=== PATIENT | female | born 1940 | race Caucasian/White ===

== ENCOUNTER → 2016-06-10 | Outpatient (CLI) | payer MEDICARE, MEDICAID ==
[~2016-06-10] MED LIST: ASPI-407 PO; LEVO100C; LIS5T GT; MELO-85; MELO-85 PO; MET50T GT; METO-169; OME20GT; OMEP20CA5 OR; SIMV-8 PO; SIMV20TA90
[2016-06-10 12:16] LABS: Basophils # (auto) 0 uL; Basophils % (auto) 0.7 % (0.0-2.0); Eosinophils # (auto) 0.2 uL; Hematocrit 42.7 % (36.0-46.0); Hemoglobin 13.6 g/dL (12.2-16.2); Lymphocytes % (auto) 33.9 % (10.0-50.0); Mean Corpuscular Hemoglobin 29.2 pg (28.0-32.0); Mean Corpuscular Hgb Conc. 31.8 g/dL (32.0-36.0); Mean Corpuscular Volume 91.8 fL (80.0-100.0); Mean Platelet Volume 8.5 fL (7.4-10.4); Monocytes # (auto) 0.5 uL; Monocytes % (auto) 8.2 % (0.0-12.0); Neutrophils # (auto) 3.1 uL; Neutrophils % (auto) 53.2 % (37.0-80.0); Platelet Count (auto) 285 10^3/uL (140-450); Red Cell Distribution Width 12.9 % (11.6-16.0); White Blood Cell 5.8 10^3/uL (4.4-10.8)
[2016-06-10 12:19] LABS: Urine Bilirubin Negative (Negative); Urine Blood Negative /uL (Negative); Urine Color Yellow (Yellow); Urine Glucose Normal (Normal); Urine Ketone Negative (Negative); Urine Nitrite Negative (Negative); Urine Urobilinogen Normal (Negative)
[2016-06-10 13:08] LABS: Albumin 4.1 g/dL (3.4-5.0); BUN/Creatinine Ratio 27.3; Bilirubin, Direct 0.2 mg/dL (0-0.2); Bilirubin, Total 1.1 mg/dL (0.2-1.0); Calcium 9.1 mg/dL (8.5-10.1); Potassium 4.2 mmol/L (3.5-5.1); Total Protein 7.7 g/dL (6.4-8.2)
== END | disposition home or self-care (01) ==
LOC: Rad HDHVI 08:36
PROVIDERS: ATTEND Internal Medicine Cardiovascular Disease
DX: I10 Essential (primary) hypertension (principal); E78.00 Pure hypercholesterolemia, unspecified; K74.1 Hepatic sclerosis; E11.9 Type 2 diabetes mellitus without complications; E03.9 Hypothyroidism, unspecified; D64.9 Anemia, unspecified; E55.9 Vitamin D deficiency, unspecified; N39.0 Urinary tract infection, site not specified
CPT/HCPCS: 36415; 80048; 80061; 80076; 81003; 82306; 83036; 84443; 85025

== ENCOUNTER → 2016-11-25 | Outpatient (CLI) | payer MEDICARE, MEDICAID ==
[~2016-11-25] MED LIST changes: -OMEP20CA5 OR; +OMEP20CA74 OR
== END | disposition home or self-care (01) ==
LOC: Rad HDHVI 10:36
PROVIDERS: ATTEND Internal Medicine Cardiovascular Disease
DX: M79.89 Other specified soft tissue disorders (principal); R22.9 Localized swelling, mass and lump, unspecified; R53.1 Weakness
CPT/HCPCS: 93926; 93970

== ENCOUNTER → 2017-01-23 | Outpatient (CLI) | payer MEDICARE, MEDICAID ==
[~2017-01-23] MED LIST changes: +IOHEXOL 350 MG/ML 100ML IJ ONE
[2017-01-23 10:10] VITALS: BP 182/90
[2017-01-23 10:45] VITALS: BP 195/95
== END | disposition home or self-care (01) ==
LOC: Rad HDHVI 09:59
PROVIDERS: ATTEND Internal Medicine Cardiovascular Disease
DX: K55.1 Chronic vascular disorders of intestine (principal); D71 Functional disorders of polymorphonuclear neutrophils; N28.1 Cyst of kidney, acquired; I51.7 Cardiomegaly; K76.89 Other specified diseases of liver
CPT/HCPCS: 74177; 82565; G0463; Q9967; 96374

== ENCOUNTER → 2017-03-13 | Outpatient (CLI) | payer MEDICARE, MEDICAID ==
[~2017-03-13] MED LIST changes: -IOHEXOL 350 MG/ML 100ML IJ ONE; -MELO-85; -MELO-85 PO; +MELO1TAB73; +MELO1TAB73 PO
[2017-03-13 14:14] LABS: BUN/Creatinine Ratio 25.4; Calcium 9.4 mg/dL (8.5-10.1); Uric Acid 5.5 mg/dL (2.6-6.0)
== END | disposition home or self-care (01) ==
LOC: Rad HDHVI 11:56
PROVIDERS: ATTEND Internal Medicine Cardiovascular Disease
DX: M25.461 Effusion, right knee (principal); M25.761 Osteophyte, right knee; I10 Essential (primary) hypertension; M10.9 Gout, unspecified
CPT/HCPCS: 36415; 73562; 80048; 84550

== ENCOUNTER → 2017-03-30 | Outpatient (CLI) | payer MEDICARE, MEDICAID | END | disposition home or self-care (01) | LOC: Rad HDHVI 11:40 | PROVIDERS: ATTEND Internal Medicine Cardiovascular Disease | DX: M17.11 Unilateral primary osteoarthritis, right knee (principal); M11.261 Other chondrocalcinosis, right knee; M67.863 Other specified disorders of tendon, right knee; M25.461 Effusion, right knee; M85.9 Disorder of bone density and structure, unspecified | CPT/HCPCS: 73700; 77078 ==

== ENCOUNTER → 2017-08-12 | Outpatient (CLI) | payer MEDICARE, MEDICAID ==
[~2017-08-12] VITALS: Ht 162.6 cm; Wt 86.2 kg
[~2017-08-12] MED LIST changes: +ADENOSINE 72 MG in GIVE UN-DILUTED 0 ML IV ONE; +ADENOSINE 90 MG/30 ML INJ IV ONE
[2017-08-12 12:10] LABS: Basophils # (auto) 0 uL; Basophils % (auto) 0.8 % (0.0-2.0); Eosinophils # (auto) 0.1 uL; Eosinophils % (auto) 2.4 % (0.0-7.0); Hematocrit 42.7 % (36.0-46.0); Hemoglobin 14.1 g/dL (12.2-16.2); Lymphocytes # (auto) 2.1 uL; Lymphocytes % (auto) 43.1 % (10.0-50.0); Mean Corpuscular Hemoglobin 30.4 pg (28.0-32.0); Mean Corpuscular Hgb Conc. 32.9 g/dL (32.0-36.0); Mean Corpuscular Volume 92.4 fL (80.0-100.0); Monocytes # (auto) 0.3 uL; Monocytes % (auto) 6.7 % (0.0-12.0); Neutrophils # (auto) 2.2 uL; Nucleated Red Blood Cells % 1.4 %; Platelet Count (auto) 68 10^3/uL (140-450); Red Blood Cells 4.63 10^6/uL (4.0-5.20); Red Cell Distribution Width 13.5 % (11.8-14.3); White Blood Cell 4.8 10^3/uL (4.4-10.8)
[2017-08-12 12:21] LABS: Free T4 (Free Thyroxine) 1.21 ng/dL (0.89-1.76)
[2017-08-12 12:42] LABS: Albumin 3.9 g/dL (3.4-5.0); BUN/Creatinine Ratio 19.4; Bilirubin, Total 0.8 mg/dL (0.2-1.0); Calcium 9.2 mg/dL (8.5-10.1); Potassium 3.6 mmol/L (3.5-5.1); Total Protein 7.6 g/dL (6.4-8.2)
== END | disposition home or self-care (01) ==
LOC: Rad HDHVI 08:38
PROVIDERS: ATTEND Internal Medicine Cardiovascular Disease
DX: I11.0 Hypertensive heart disease with heart failure (principal); I50.33 Acute on chronic diastolic (congestive) heart failure; R00.2 Palpitations; M76.51 Patellar tendinitis, right knee; M76.52 Patellar tendinitis, left knee; E78.5 Hyperlipidemia, unspecified; D64.9 Anemia, unspecified; E11.9 Type 2 diabetes mellitus without complications; E03.9 Hypothyroidism, unspecified; E55.9 Vitamin D deficiency, unspecified; D51.9 Vitamin B12 deficiency anemia, unspecified; N39.0 Urinary tract infection, site not specified
CPT/HCPCS: 36415; 78452; 80053; 80061; 82306; 82607; 83036; 84439; 84443; 85025; 93005; 96374; 96375; A9500; J0153

== ENCOUNTER 2018-04-15 16:06 | Emergency (ER) | payer MEDICARE, MEDICAID ==
[~2018-04-15 16:06] MED LIST changes: -ADENOSINE 72 MG in GIVE UN-DILUTED 0 ML IV ONE; -ADENOSINE 90 MG/30 ML INJ IV ONE; +IBUP100S11 PO
[2018-04-15 16:12] VITALS: BP 193/90
== END 2018-04-15 17:50 | disposition home or self-care (01) ==
LOC: ER 16:09
DX: M17.0 Bilateral primary osteoarthritis of knee (principal); M11.262 Other chondrocalcinosis, left knee; M11.261 Other chondrocalcinosis, right knee; K21.9 Gastro-esophageal reflux disease without esophagitis; E78.5 Hyperlipidemia, unspecified; E07.9 Disorder of thyroid, unspecified; E11.9 Type 2 diabetes mellitus without complications; I10 Essential (primary) hypertension; Z95.0 Presence of cardiac pacemaker; Z79.82 Long term (current) use of aspirin; Z79.899 Other long term (current) drug therapy
CPT/HCPCS: 73562

== ENCOUNTER 2018-05-14 13:31 | Inpatient (IN) | payer MEDICARE, MEDICAID ==
[~2018-05-14] VITALS: Ht 154.9 cm; Wt 93.2 kg
[2018-05-14 14:46] LABS: Albumin 3.7 g/dL (3.4-5.0); Anion Gap 3 (5-15); Blood Urea Nitrogen 16 mg/dL (7-18); Calcium 8.6 mg/dL (8.5-10.1); Carbon Dioxide 28 mmol/L (21-32); Chloride 108 mmol/L (98-107); Glucose 136 mg/dL (74-106); Sodium 139 mmol/L (136-145)
[2018-05-14 14:50] LABS: Alanine Aminotransferase 34 U/L (13-56); Alkaline Phosphatase 73 U/L (45-117); Aspartate Aminotransferase 33 U/L (15-37); BUN/Creatinine Ratio 23.5; Bilirubin, Total 0.9 mg/dL (0.2-1.0); GFR African American > 60 mL/min; GFR Non-African American > 60 mL/min; Total Protein 7.1 g/dL (6.4-8.2)
[2018-05-14 14:58] LABS: INR 0.96 (0.9-1.15); Partial Thromboplastin Time 26.1 sec (23.78-33.04); Prothrombin Time 10.3 sec (9.27-12.13)
[2018-05-14 15:45] LABS: Hematocrit 37.6 % (36.0-46.0); Hemoglobin 13.3 g/dL (12.2-16.2); Mean Corpuscular Hemoglobin 32.3 pg (28.0-32.0); Mean Corpuscular Hgb Conc. 35.3 g/dL (32.0-36.0); Mean Corpuscular Volume 91.5 fL (80.0-100.0); Platelet Count (auto) 258 10^3/uL (140-450); Red Cell Distribution Width 13.1 % (11.8-14.3); White Blood Cell 6.5 10^3/uL (4.4-10.8)
[2018-05-14 15:55] LABS: Band Neutrophils % (manual) 0; Basophils % (manual) 0 (0.0-2.0); Blast Cells 0; Metamyelocytes % 0; Myelocytes % 0; Promyelocytes % 0; Reactive Lymphocytes 0
[2018-05-14] MEDS ORDERED: NITROGLYCERIN 0.4 MG SL TAB SL PRN (16:30)
[2018-05-14] MEDS ORDERED: MORPHINE SULFATE 10 MG/ML INJ 1ML SDV IV PRN (16:30)
[2018-05-14] MEDS: ONDANSETRON HCL 4 MG/2 ML VIAL IV PRN (17:10)
[2018-05-14] MEDS: MORPHINE SULFATE 10 MG/ML INJ 1ML SDV IV PRN ×3 (17:11→21:22)
[2018-05-14 18:43] LABS: Lymphocytes % (manual) 26 (10.0-50.0)
[2018-05-14 18:44] LABS: Eosinophils % (manual) 2 (0-7); Monocytes % (manual) 8 (0-12)
[2018-05-14] MEDS: HYDROcodone-ACET 7.5/325MG TAB PO PRN (18:55)
[2018-05-14 20:00] VITALS: BP 110/63
[2018-05-14] MEDS ORDERED: MELO1TAB56 PO (20:16)
[2018-05-14] MEDS ORDERED: OLME20TA19 PO (20:16)
[2018-05-14] MEDS ORDERED: OMEP20TA PO (20:16)
[2018-05-14] MEDS ORDERED: LEV100T PO (20:16)
[2018-05-14] MEDS ORDERED: ATOR20TA PO (20:16)
[2018-05-14] MEDS ORDERED: MET5XLT PO (20:16)
[2018-05-14] MEDS: ATORVASTATIN 20 MG TAB PO SCH (21:20)
[2018-05-14] MEDS: METOPROLOL TARTRATE 50 MG TAB PO SCH (21:21)
[2018-05-14 22:00] VITALS: BP 110/63
--- NOTE | 2018-05-14 23:00 | NUR ---
Telemetry admit from MATTHEW ARAMBULA, [place] speaking, admitted to Telemetry unit after SBAR received. Patient oriented to IRINA SON, primary RN, unit, room, bed, and unit policies regarding patient care and visiting hours. Patient now on continuous telemetry monitoring, tele box # 2. Patient weighed by bedscale and encouraged to call if they need something. All questions and concerns addressed, patient verbalized understanding with help from patient's daughters.
--- NOTE | 2018-05-15 | NUR ---
STARTING NPO FOR SCHEDULED PROCEDURE
[2018-05-15] MEDS: MORPHINE SULFATE 10 MG/ML INJ 1ML SDV IV PRN ×3 (00:12→21:17)
[2018-05-15 04:58] VITALS: BP 106/52
[2018-05-15 05:42] LABS: Basophils # (auto) 0 uL; Basophils % (auto) 0.4 % (0.0-2.0); Eosinophils # (auto) 0.1 uL; Eosinophils % (auto) 1.3 % (0.0-7.0); Hematocrit 33.8 % (36.0-46.0); Hemoglobin 11.7 g/dL (12.2-16.2); Mean Corpuscular Hgb Conc. 34.7 g/dL (32.0-36.0); Mean Corpuscular Volume 92.1 fL (80.0-100.0); Monocytes # (auto) 0.9 uL; Monocytes % (auto) 11.1 % (0.0-12.0); Neutrophils # (auto) 4.7 uL; Neutrophils % (auto) 61.2 % (37.0-80.0); Platelet Count (auto) 201 10^3/uL (140-450); Red Blood Cells 3.67 10^6/uL (4.0-5.20); Red Cell Distribution Width 12.6 % (11.8-14.3); White Blood Cell 7.7 10^3/uL (4.4-10.8)
[2018-05-15 05:58] LABS: INR 0.98 (0.9-1.15); Partial Thromboplastin Time 25.6 sec (23.78-33.04); Prothrombin Time 10.5 sec (9.27-12.13)
[2018-05-15 06:01] LABS: Albumin 3.4 g/dL (3.4-5.0); Calcium 8.1 mg/dL (8.5-10.1); Potassium 3.6 mmol/L (3.5-5.1)
[2018-05-15 06:06] LABS: BUN/Creatinine Ratio 15.2; Bilirubin, Total 1.1 mg/dL (0.2-1.0); Total Protein 6.3 g/dL (6.4-8.2)
--- NOTE | 2018-05-15 06:40 | NUR ---
Cleaned patient with johann and done full linen change.
--- NOTE | 2018-05-15 07:50 | NUR ---
Opening Shift Note Assumed care of patient, awake and alert, oriented x 4 and verbally responsive. Respiratory even and unlabored. No S/S of distress/SOB or pain. Skin is warm and dry to touch. Continue NPO for ORIF to the right tibia, patient tolerated well. Instructed on POC and to call for assist PRN, will continue to monitor for changes Q1hr and PRN.
[2018-05-15 08:00] VITALS: BP 93/53
[2018-05-15 08:09] LABS: Urine Bacteria MANY /hpf (None Seen); Urine Blood 2+ /uL (Negative); Urine Hyaline Cast MANY /lpf (0 - 2); Urine Mucus MANY (None Seen); Urine Specific Gravity 1.025 (1.001-1.035); Urine WBC 139 /hpf (0 - 5)
[2018-05-15 08:39] VITALS: BP 93/53
[2018-05-15] MEDS: METOPROLOL TARTRATE 50 MG TAB PO SCH ×2 (09:07→21:16)
[2018-05-15] MEDS: PANTOPRAZOLE 40 MG/10 ML VIAL IV SCH (09:13)
--- NOTE | 2018-05-15 10:21 | NUR ---
Called [facility] regarding OR scheduling, patient will have ORIF around 1 PM. patient notified.
[2018-05-15] MEDS: cefTRIAXone 1GM/50ML D5W 50 ML IV SCH (12:12)
[2018-05-15] MEDS: SODIUM CHLORIDE 0.9% 1,000 ML IV SCH ×2 (12:12→21:15)
[2018-05-15 12:35] VITALS: BP 109/59
--- NOTE | 2018-05-15 13:30 | NUR ---
Dr. Love at bedside, procedure explained to the patient and family, all questions answered.
--- NOTE | 2018-05-15 14:15 | NUR ---
IV insertion IV access obtained, via clean sterile technique by inserting 20 gauge catheter at after attempt(s). IV secured properly. No trauma to site. Patient tolerated well. NOTE:
[2018-05-15] MEDS ORDERED: ceFAZolin 1GM/50ML 100 ML IV ONE ×2 (14:45→16:04)
--- NOTE | 2018-05-15 14:49 | NUR ---
T 99.8 cooling measure placed. Will continue to monitor.
--- NOTE | 2018-05-15 15:00 | NUR ---
T 98.2
--- NOTE | 2018-05-15 15:30 | NUR ---
T 98.5
--- NOTE | 2018-05-15 15:40 | NUR ---
Patient off unit to OR.
[2018-05-15] MEDS ORDERED: fentaNYL CITRATE 100 MCG/2 ML VL ONE (16:03)
[2018-05-15] MEDS ORDERED: MIDAZOLAM HCL 1MG/1ML-2 ML VIAL ONE (16:04)
[2018-05-15] MEDS ORDERED: TETRACAINE 1% INJ 2 ML VIAL IJ ONE (16:06)
[2018-05-15] MEDS ORDERED: DEXAMETHASONE SOD PHOS 10MG/1ML VIAL INJ ONE (16:30)
[2018-05-15] MEDS ORDERED: PROPOFOL 10 MG/ML 20 ML IV ONE ×2 (16:35→18:48)
[2018-05-15] MEDS ORDERED: PHENYLEPHRINE HCL 10 MG/ML VL ONE (16:46)
[2018-05-15] MEDS: HYDROmorphone HCL 2 MG/ML VL ONE ×2 (20:00→20:10)
--- NOTE | 2018-05-15 20:40 | NUR ---
patient is back to Telemetry unit after Received SBAR from Jacki OLMSTEAD in recovering room. Telemetry reading on arrival to unit is V-PACED 88, placed on 2L bedside oxygen vis NC, alert oriented x4, urine is draining to Arias bag by gravity, IV at left AC is intact, right leg is covered with dressing. Patient's 2 daughters and a grand daughter at bedside. Patient reported Nausea and pain level 9/10 at right leg and hip. Will provide PRN medications for current symptoms and continue to monitor for changes Q1hr and PRN.
[2018-05-15] MEDS: ATORVASTATIN 20 MG TAB PO SCH (21:15)
[2018-05-15] MEDS: ONDANSETRON HCL 4 MG/2 ML VIAL IV PRN (21:17)
[2018-05-15 21:30] VITALS: BP 111/68
[2018-05-16] MEDS: ONDANSETRON HCL 4 MG/2 ML VIAL IV PRN ×2 (00:03→03:09)
[2018-05-16] MEDS: MORPHINE SULFATE 10 MG/ML INJ 1ML SDV IV PRN ×5 (00:03→21:34)
[2018-05-16 05:00] VITALS: BP 93/59
[2018-05-16 05:23] LABS: Basophils # (auto) 0 uL; Basophils % (auto) 0.1 % (0.0-2.0); Eosinophils # (auto) 0 uL; Hematocrit 28.6 % (36.0-46.0); Hemoglobin 9.9 g/dL (12.2-16.2); Lymphocytes % (auto) 13.3 % (10.0-50.0); Mean Corpuscular Hemoglobin 32.3 pg (28.0-32.0); Mean Corpuscular Hgb Conc. 34.7 g/dL (32.0-36.0); Mean Corpuscular Volume 93.1 fL (80.0-100.0); Monocytes # (auto) 0.4 uL; Monocytes % (auto) 5.5 % (0.0-12.0); Neutrophils # (auto) 6.1 uL; Neutrophils % (auto) 81.1 % (37.0-80.0); Platelet Count (auto) 152 10^3/uL (140-450); Red Blood Cells 3.07 10^6/uL (4.0-5.20); White Blood Cell 7.6 10^3/uL (4.4-10.8)
[2018-05-16 05:41] LABS: Potassium 4.3 mmol/L (3.5-5.1)
[2018-05-16 05:46] LABS: BUN/Creatinine Ratio 25.9; Calcium 7.9 mg/dL (8.5-10.1)
--- NOTE | 2018-05-16 06:15 | NUR ---
Hospitalist paged to due to current episode of low blood pressure 93/59.. HR: 81.. T:99.1.....RR:18....O2: 91 Patient is asymptomatic and will notify to Hospitalist
--- NOTE | 2018-05-16 06:25 | NUR ---
Senia SEAT NAILER returned call updated on patient status and reason for call, one time dose of 250 mL NS bolus orders received. Continue care.
--- NOTE | 2018-05-16 06:40 | NUR ---
Bowel sound present at all 4 quadrant of abdomen. patient reported, she passed the gas.
[2018-05-16] MEDS: SODIUM CHLORIDE 0.9% 1,000 ML IV SCH ×2 (06:45→12:00)
[2018-05-16] MEDS ORDERED: SODIUM CHLORIDE 0.9% 250 ML IV ONE (06:45)
[2018-05-16] MEDS ORDERED: SODIUM CHLORIDE 0.9% 1,000 ML IV SCH (06:45)
--- NOTE | 2018-05-16 07:42 | NUR ---
Paged hospitalist regarding diet order, awaiting to call back.
[2018-05-16 08:00] VITALS: BP 97/51
--- NOTE | 2018-05-16 08:04 | NUR ---
Received a call from Dr. Ordaz with new order noted and carried out.
--- NOTE | 2018-05-16 08:30 | NUR ---
Opening Shift Note Assumed care of patient, awake and alert, oriented x 4 and verbally responsive. Respiratory even and unlabored. No S/S of distress/SOB or pain. Skin is warm and dry to touch. S/p ORIF to right leg, dressing dry and intact. Instructed on POC and to call for assist PRN, will continue to monitor for changes Q1hr and PRN.
[2018-05-16 08:52] VITALS: BP 97/51
[2018-05-16] MEDS: METOPROLOL TARTRATE 50 MG TAB PO SCH ×2 (09:11→21:35)
[2018-05-16] MEDS: cefTRIAXone 1GM/50ML D5W 50 ML IV SCH (09:19)
[2018-05-16] MEDS: PANTOPRAZOLE 40 MG/10 ML VIAL IV SCH (09:19)
--- NOTE | 2018-05-16 12:03 | NUR ---
IV insertion IV access obtained, via clean sterile technique by inserting 20 gauge catheter at after attempt(s). IV secured properly. No trauma to site. Patient tolerated procedure well.
[2018-05-16 12:36] VITALS: BP 101/56
[2018-05-16] MEDS: HYDROcodone-ACET 7.5/325MG TAB PO PRN (14:45)
[2018-05-16 16:58] VITALS: BP 95/56
--- NOTE | 2018-05-16 17:00 | NUR ---
Dr. Love at bedside changed the dressing to right leg.
[2018-05-16] MEDS: ceFAZolin 1GM/50ML 50 ML IV SCH (18:07)
--- NOTE | 2018-05-16 19:30 | NUR ---
Opening Shift Note Assumed care of patient, awake and alert. No S/S of distress/SOB. Patient complained of pain 12/04 but request to take pain medication and scheduled evening medication together. Repositioned patient and demonstrate how to adjust height of hospital bed again. Patient's grandchildren at bedside. No bowel movement today. Bed locked in lowest position, 2 upper side rails up, call light and bedside table within reach. Instructed on POC and to call for assist PRN, will continue to monitor for changes Q1hr and PRN.
[2018-05-16] MEDS: ATORVASTATIN 20 MG TAB PO SCH (21:34)
[2018-05-16 22:00] VITALS: BP 118/49
[2018-05-17] MEDS: SODIUM CHLORIDE 0.9% 1,000 ML IV SCH ×4 (00:17→20:00)
[2018-05-17] MEDS: ceFAZolin 1GM/50ML 50 ML IV SCH ×4 (00:21→21:51)
[2018-05-17] MEDS: MORPHINE SULFATE 10 MG/ML INJ 1ML SDV IV PRN ×4 (03:20→21:08)
[2018-05-17 05:00] VITALS: BP 105/47
[2018-05-17 06:33] LABS: Hematocrit 25.3 % (36.0-46.0); Hemoglobin 8.7 g/dL (12.2-16.2)
[2018-05-17] MEDS: HYDROcodone-ACET 7.5/325MG TAB PO PRN ×3 (07:58→22:27)
--- NOTE | 2018-05-17 08:20 | NUR ---
Opening Shift Note Assumed care of patient, awake and alert, oriented x 4 and verbally responsive. Respiratory even and unlabored. No S/S of distress/SOB or pain. Skin is warm and dry to touch. S/p ORIF, dressing dry , intact. Instructed on POC and to call for assist PRN, will continue to monitor for changes Q1hr and PRN.
[2018-05-17 09:00] VITALS: BP 110/51
[2018-05-17] MEDS: cefTRIAXone 1GM/50ML D5W 50 ML IV SCH (09:25)
[2018-05-17] MEDS: PANTOPRAZOLE 40 MG/10 ML VIAL IV SCH (09:25)
[2018-05-17] MEDS: ENOXAPARIN SOD 40 MG/0.4 ML SYRINGE SC SCH (09:25)
[2018-05-17] MEDS: METOPROLOL TARTRATE 50 MG TAB PO SCH ×2 (09:26→21:52)
--- NOTE | 2018-05-17 12:22 | NUR ---
Assessment Patient is a 78 year old female who is alert and oriented. Patients erwin Ritter is translating for us. Prior to admission patient lived home alone and functioned independently. Patient informed me she is able to care for her own ADLs. Per patient she was on a stool taking down [place] lights and fell. Patient is deciding on SNF and home with home health. I informed patient she has a right to speak to a foster care social worker regarding all care. I informed patient she has a right to participate in any and all discharge planning. Patient is aware of visiting hours on the hospital floor. I informed patient she has a right to privacy. Patient does not have a POA and advanced directive. I have offered patient information on POA and advanced directives. I informed the patient the advantages and benefits of having an Advanced Directive. Patient verbalized understanding and agreed to discharge plan. Per ss consult lives alone. Patient does live alone. Patient will go to SNF or home with family on discharge. Addendum: 05/21/18 at 1225 by Tereza MCKENZIE Amended: Links added.
--- NOTE | 2018-05-17 12:30 | NUR ---
IV insertion IV access obtained, via clean sterile technique by inserting 22 gauge catheter at after attempt(s). IV secured properly. No trauma to site. Patient tolerated well. NOTE:
[2018-05-17 12:42] VITALS: BP 105/64
--- NOTE | 2018-05-17 16:06 | NUR ---
Left a message to Tereza Osei (MAGALY) regarding patient wants to go home with HH PT.
--- NOTE | 2018-05-17 16:17 | NUR ---
Tereza made aware that patient wants to go [place] with HH PT.
--- NOTE | 2018-05-17 16:44 | NUR ---
UA sent to the lab.
[2018-05-17 17:00] VITALS: BP_SYST 127; BP_SYST 137; BP_DIAS 64; BP_DIAS 70
--- NOTE | 2018-05-17 19:05 | NUR ---
RECEIVED PATIENT LYING IN BED, AWAKE, ALERT, ORIENTED X4, WITH FAMILY AT BEDSIDE. NO S/S OF RESPIRATORY DISTRESS, DENIES SOB AND CHEST PAIN. ORIENTED ON PLAN OF CARE. BED IS LOCKED AND IN LOWEST LEVEL, SIDE RAILS UP X2, CALL LIGHT WITHIN REACH. WILL CONTINUE TO MONITOR.
[2018-05-17] MEDS: ATORVASTATIN 20 MG TAB PO SCH (21:52)
[2018-05-17 22:00] VITALS: BP 106/53
[2018-05-18] MEDS: SODIUM CHLORIDE 0.9% 1,000 ML IV SCH ×3 (01:19→20:00)
[2018-05-18 05:00] VITALS: BP 117/75
[2018-05-18] MEDS: ceFAZolin 1GM/50ML 50 ML IV SCH ×2 (05:50→13:55)
[2018-05-18] MEDS: HYDROcodone-ACET 7.5/325MG TAB PO PRN ×2 (06:25→23:54)
--- NOTE | 2018-05-18 07:26 | NUR ---
CARE ENDORSED TO AM SHIFT RN
--- NOTE | 2018-05-18 07:30 | NUR ---
Opening Shift Note Assuming care of patient at this time. Patient is awake and alert at this time. Patient denies pain. Patient shows no signs or symptoms of shortness of breath or distress. Patient is in bed with bed locked and lowered with side rails up x2. Instructed patient on the plan of care and to call for assistance as needed. Call light within reach. Will continue to monitor.
--- NOTE | 2018-05-18 09:30 | NUR ---
Re: Social Service spoke with Tereza regarding patient not wanting to be discharged to a Assisted Facility. Tereza verbalized understanding. Will begin working on home health for patient.
[2018-05-18 09:31] VITALS: BP 147/76
[2018-05-18] MEDS: PANTOPRAZOLE 40 MG/10 ML VIAL IV SCH (09:37)
[2018-05-18] MEDS: METOPROLOL TARTRATE 50 MG TAB PO SCH ×2 (09:38→21:54)
[2018-05-18] MEDS: ENOXAPARIN SOD 40 MG/0.4 ML SYRINGE SC SCH (09:38)
[2018-05-18] MEDS: cefTRIAXone 1GM/50ML D5W 50 ML IV SCH (09:38)
--- NOTE | 2018-05-18 11:00 | NUR ---
Re: Physical Therapy Patient ambulated approx 40 feet at this time with physical therapy. Granddaughter at bedside.
[2018-05-18 12:53] VITALS: BP 151/78
--- NOTE | 2018-05-18 12:59 | NUR ---
Faxed home health order to [facility].
--- NOTE | 2018-05-18 13:17 | NUR ---
I received a call from Lisa at [facility] [phone], they can accept this patient, I let her know that I would call back when patient is discharged.
[2018-05-18] MEDS: MORPHINE SULFATE 10 MG/ML INJ 1ML SDV IV PRN (13:56)
--- NOTE | 2018-05-18 14:45 | NUR ---
Re: at bedside Dr. Love at bedside to change dressing and instructing patient on plan of care.
--- NOTE | 2018-05-18 15:19 | NUR ---
Re: Discontinued Tucker Catheter Patient's tucker catheter discontinued at this time per doctor's orders. Dumped out 500 mL of urine. Patient tolerated well.
[2018-05-18 17:11] VITALS: BP 126/59
[2018-05-18] MEDS: LACTULOSE 20Gm/30ML SOLN PO SCH ×2 (18:32→23:53)
--- NOTE | 2018-05-18 18:50 | NUR ---
Closing Shift Note Patient is sitting on the bedside commode with family at bedside. Patient shows no signs or symptoms of distress or shortness of breath. Will endorse care to the mini shifter RN.
[2018-05-18] MEDS: ONDANSETRON HCL 4 MG/2 ML VIAL IV PRN (19:07)
[2018-05-18] MEDS: ATORVASTATIN 20 MG TAB PO SCH (21:54)
[2018-05-18 22:00] VITALS: BP 143/54
--- NOTE | 2018-05-19 02:26 | NUR ---
SAMPLE FOR URINE BACTERIAL CULTURE SENT TO LAB
[2018-05-19] MEDS: SODIUM CHLORIDE 0.9% 1,000 ML IV SCH ×3 (04:33→21:14)
[2018-05-19 05:00] VITALS: BP 139/64
[2018-05-19] MEDS: LACTULOSE 20Gm/30ML SOLN PO SCH ×4 (05:33→23:08)
[2018-05-19 06:42] LABS: Hematocrit 24.9 % (36.0-46.0); Hemoglobin 8.8 g/dL (12.2-16.2)
--- NOTE | 2018-05-19 07:30 | NUR ---
Opening Shift Note Assuming care of patient at this time. Patient is awake, alert, and oriented x4. Patient denies pain at this time. Patient is in bed with bed locked and lowered with side rails up x2. Instructed patient on the plan of care and to call for assistance as needed. Call light within reach. Will continue to monitor.
--- NOTE | 2018-05-19 07:35 | NUR ---
CARE ENDORSED TO AM SHIFT RN
[2018-05-19 09:00] VITALS: BP 140/66
[2018-05-19] MEDS: cefTRIAXone 1GM/50ML D5W 50 ML IV SCH (09:55)
[2018-05-19] MEDS: ENOXAPARIN SOD 40 MG/0.4 ML SYRINGE SC SCH (09:55)
[2018-05-19] MEDS: PANTOPRAZOLE 40 MG/10 ML VIAL IV SCH (09:55)
[2018-05-19] MEDS: METOPROLOL TARTRATE 50 MG TAB PO SCH ×2 (10:03→21:14)
[2018-05-19 13:00] VITALS: BP 116/57
--- NOTE | 2018-05-19 14:38 | NUR ---
NUTRITION ASSESSMENT NOTES Please refer to link notes of nutrition screen form filed under the intervention section of the plan of care for further details. Est. Needs: 1350 kcal to 1850 kcal (15-20 kcal/kgBW), 48 gms to 58 gms pro (1.0-1.2 gms/kgIBW: 48 kg). Will continue to monitor pertinent labs and reassess nutrient needs prn Thank you. Addendum: 05/19/18 at [address] Amended: Links added.
[2018-05-19 17:00] VITALS: BP 122/59
[2018-05-19] MEDS: MORPHINE SULFATE 10 MG/ML INJ 1ML SDV IV PRN (17:28)
--- NOTE | 2018-05-19 19:34 | NUR ---
Closing Shift Note Patient is resting in bed with granddaughter at bedside. Patient has signed consents for blood transfusion. Patient does not show any signs or symptoms of distress or shortness of breath. Will endorse care to the slot shift manager RN.
--- NOTE | 2018-05-19 19:36 | NUR ---
Opening Shift Note Assumed care of patient, awake and alert x4. Family at bedside for translation. No S/S of distress/SOB on 3L N/C. Denies pain. Bed locked in lowest position, call light with in reach. Instructed on POC and to call for assist PRN, will continue to monitor for changes Q1hr and PRN.
[2018-05-19] MEDS: ATORVASTATIN 20 MG TAB PO SCH (21:13)
[2018-05-19] MEDS: ACETAMINOPHEN 500 MG TAB PO PRN (21:15)
--- NOTE | 2018-05-19 21:15 | NUR ---
TEMPERATURE 100.1 Tylenol 500mg given
[2018-05-19 21:58] VITALS: BP 126/59
--- NOTE | 2018-05-19 22:15 | NUR ---
Reassessment of Temperature 99.2
--- NOTE | 2018-05-19 22:40 | NUR ---
Paged Dr. Fowler's office To update with patients temperature, order clarification requested Regarding to given now or hold blood transfusion until temperature WDL.
--- NOTE | 2018-05-19 23:30 | NUR ---
Still awaiting call back from Malcolm, patients temperature now at 98.7 will continue to monitor
--- NOTE | 2018-05-19 23:50 | NUR ---
IV insertion IV access obtained, via clean sterile technique by inserting 20 gauge catheter at right FA after 3 attempts. IV secured properly. No trauma to site. Patient tolerated well.
[2018-05-20] VITALS (12 sets, daily range): BP systolic 122–155; BP diastolic 56–80
--- NOTE | 2018-05-20 00:29 | NUR ---
temperature maintaining WDL, 98.7 Will administer ordered blood transfusion
--- NOTE | 2018-05-20 01:00 | NUR ---
rDew 1 unit of PRBC Addendum: 05/20/18 at 0216 by JOSE JACOBSEN RN Started
--- NOTE | 2018-05-20 01:15 | NUR ---
No reaction noted at this time patient tolerating infusion well. Will continue to monitor.
--- NOTE | 2018-05-20 03:55 | NUR ---
End of transfusion, 1 unit of PRBC, no reaction noted.
[2018-05-20] MEDS: LACTULOSE 20Gm/30ML SOLN PO SCH ×3 (06:00→18:00)
[2018-05-20] MEDS: SODIUM CHLORIDE 0.9% 1,000 ML IV SCH ×3 (06:03→22:15)
[2018-05-20] MEDS: LEVOTHYROXINE SODIUM 100 MCG TAB PO SCH (07:10)
[2018-05-20 07:52] LABS: Basophils # (auto) 0 uL; Basophils % (auto) 0.9 % (0.0-2.0); Eosinophils # (auto) 0.3 uL; Hematocrit 27.4 % (36.0-46.0); Hemoglobin 9.7 g/dL (12.2-16.2); Lymphocytes # (auto) 1.4 uL; Mean Corpuscular Hemoglobin 31.8 pg (28.0-32.0); Mean Corpuscular Hgb Conc. 35.4 g/dL (32.0-36.0); Mean Corpuscular Volume 89.9 fL (80.0-100.0); Monocytes # (auto) 0.5 uL; Monocytes % (auto) 10.3 % (0.0-12.0); Neutrophils # (auto) 2.8 uL; Neutrophils % (auto) 55.8 % (37.0-80.0); Nucleated Red Blood Cells % 0.1 %; Platelet Count (auto) 188 10^3/uL (140-450); Red Blood Cells 3.05 10^6/uL (4.0-5.20)
--- NOTE | 2018-05-20 08:00 | NUR ---
OPENING NOTE ASSUMED CARE OF PATIENT AWAKE, ALERT, AND ORIENTED. NO S/S OF DISTRESS NOTED. THERE IS A COMMUNICATION BARRIER. PT ONLY SPEAKS [place]. WILL UPDATE PT AND FAMILY ON POC WHEN FAMILY ARRIVES OR USING THE BLUE PHONE. DRESSING TO RIGHT KNEE IS CLEAN, DRY, AND INTACT WITH BRACE PRESENT. SCD'S APPLIED TO BOTH LEGS. BED IS IN LOWEST, LOCKED POSITION WITH SIDE RAILS UP X2 AND CALL LIGHT WITHIN REACH. BED ALARM IS ON FOR SAFETY. WILL CONTINUE TO MONITOR Q1H AND PRN.
[2018-05-20 08:14] LABS: Albumin 2.5 g/dL (3.4-5.0); Anion Gap 4 (5-15); Blood Urea Nitrogen 9 mg/dL (7-18); Carbon Dioxide 27 mmol/L (21-32); Chloride 110 mmol/L (98-107); Glucose 102 mg/dL (74-106); Potassium 3.4 mmol/L (3.5-5.1); Sodium 141 mmol/L (136-145)
[2018-05-20 08:17] LABS: Alanine Aminotransferase 16 U/L (13-56); Alkaline Phosphatase 54 U/L (45-117); Aspartate Aminotransferase 27 U/L (15-37); BUN/Creatinine Ratio 17.3; Bilirubin, Total 1.2 mg/dL (0.2-1.0); GFR African American > 60 mL/min; GFR Non-African American > 60 mL/min; Total Protein 5.6 g/dL (6.4-8.2)
[2018-05-20] MEDS: cefTRIAXone 1GM/50ML D5W 50 ML IV SCH (09:56)
[2018-05-20] MEDS: ENOXAPARIN SOD 40 MG/0.4 ML SYRINGE SC SCH (09:56)
[2018-05-20] MEDS: METOPROLOL TARTRATE 50 MG TAB PO SCH ×2 (09:56→21:14)
[2018-05-20] MEDS: PANTOPRAZOLE 40 MG/10 ML VIAL IV SCH (09:56)
--- NOTE | 2018-05-20 13:40 | NUR ---
DRESSING CHANGE DRESSING CHANGE COMPLETED TO RLE. IMMOBILIZER PLACED BACK ON PT. PT TOLERATED WELL.
[2018-05-20] MEDS: MORPHINE SULFATE 10 MG/ML INJ 1ML SDV IV PRN ×2 (13:50→21:14)
--- NOTE | 2018-05-20 17:12 | NUR ---
AT BEDSIDE DR. RODRIGUEZ AT BEDSIDE.
--- NOTE | 2018-05-20 19:15 | NUR ---
Opening Shift Note Received report from Denisse OLMSTEAD. Assumed care of patient, awake and alert, family at bedside. No S/S of distress/SOB or pain. Instructed on POC and to call for assist PRN. Fall precaution measures in place. Will continue to monitor for changes Q1hr and PRN.
[2018-05-20] MEDS: ATORVASTATIN 20 MG TAB PO SCH (21:14)
--- NOTE | 2018-05-21 01:33 | NUR ---
Rounding Patient sleeping at this time, no sob or pain noted, continue care.
[2018-05-21 05:00] VITALS: BP 155/81
[2018-05-21] MEDS: LACTULOSE 20Gm/30ML SOLN PO SCH ×5 (06:00→18:00)
[2018-05-21 06:28] LABS: Basophils # (auto) 0.1 uL; Eosinophils # (auto) 0.3 uL; Eosinophils % (auto) 4.7 % (0.0-7.0); Hematocrit 27.5 % (36.0-46.0); Hemoglobin 9.5 g/dL (12.2-16.2); Lymphocytes # (auto) 1.6 uL; Mean Corpuscular Hemoglobin 31.1 pg (28.0-32.0); Mean Corpuscular Hgb Conc. 34.5 g/dL (32.0-36.0); Mean Corpuscular Volume 90.2 fL (80.0-100.0); Monocytes # (auto) 0.5 uL; Monocytes % (auto) 9.9 % (0.0-12.0); Neutrophils # (auto) 2.9 uL; Neutrophils % (auto) 54.4 % (37.0-80.0); Nucleated Red Blood Cells % 0.1 %; Platelet Count (auto) 208 10^3/uL (140-450); Red Blood Cells 3.05 10^6/uL (4.0-5.20); Red Cell Distribution Width 13.2 % (11.8-14.3); White Blood Cell 5.3 10^3/uL (4.4-10.8)
[2018-05-21] MEDS: LEVOTHYROXINE SODIUM 100 MCG TAB PO SCH (06:56)
[2018-05-21] MEDS: SODIUM CHLORIDE 0.9% 1,000 ML IV SCH ×3 (06:56→23:30)
--- NOTE | 2018-05-21 07:30 | NUR ---
OPENING NOTE ASSUMED CARE OF PT. PT IS LAYING IN BED, HOB LOW-FOWLERS. A&O X3. PT ON 3 LPM/NC, O2 SATURATION 92%. NO SIGNS OF SOB/DISTRESS NOTED. RIGHT LOWER EXTREMITY DRESSING CLEAN, DRY AND INTACT. SAFETY PRECAUTIONS IN PLACE INCLUDING, BED SET TO LOWEST POSITION/LOCKED. BEDSIDE RAILS UP X2. CALL LIGHT WITHIN REACH. INSTRUCTED PATIENT TO CALL FOR ASSISTANCE. DISCUSSED POC WITH PT. WILL CONTINUE TO MONITOR Q 1HR AND PRN.
[2018-05-21 09:00] VITALS: BP 156/87
[2018-05-21] MEDS: ENOXAPARIN SOD 40 MG/0.4 ML SYRINGE SC SCH (10:12)
[2018-05-21] MEDS: cefTRIAXone 1GM/50ML D5W 50 ML IV SCH (10:13)
[2018-05-21] MEDS: PANTOPRAZOLE 40 MG/10 ML VIAL IV SCH (10:13)
[2018-05-21] MEDS: METOPROLOL TARTRATE 50 MG TAB PO SCH ×2 (10:13→22:00)
[2018-05-21 13:00] VITALS: BP 165/89
[2018-05-21] MEDS ORDERED: MAGNESIUM CITRATE SOLUTION 300 ML BTL PO ONE (16:30)
--- NOTE | 2018-05-21 19:42 | NUR ---
CLOSING NOTE ENDORSED CARE TO ZENAIDA OLMSTEAD.
--- NOTE | 2018-05-21 19:45 | NUR ---
Opening Shift Note Received report from Madeline OLMSTEAD. Assumed care of patient, awake and alert. No S/S of distress/SOB or pain. Instructed on POC and to call for assist PRN. Fall precaution measures in place, will continue to monitor for changes Q1hr and PRN.
[2018-05-21 20:00] VITALS: BP 163/91
[2018-05-21 21:44] VITALS: BP 163/91
[2018-05-21] MEDS: ATORVASTATIN 20 MG TAB PO SCH (22:00)
[2018-05-22 05:00] VITALS: BP 136/71
[2018-05-22] MEDS: LACTULOSE 20Gm/30ML SOLN PO SCH ×4 (05:46→18:00)
[2018-05-22] MEDS: LEVOTHYROXINE SODIUM 100 MCG TAB PO SCH (06:47)
[2018-05-22] MEDS: ACETAMINOPHEN 500 MG TAB PO PRN (06:48)
[2018-05-22] MEDS: SODIUM CHLORIDE 0.9% 1,000 ML IV SCH ×3 (07:50→22:00)
--- NOTE | 2018-05-22 07:50 | NUR ---
IV insertion IV access obtained, via clean sterile technique by inserting 22 gauge catheter at L hand after 2 attempt(s). IV secured properly. No trauma to site. Patient tolerated well.
--- NOTE | 2018-05-22 08:04 | NUR ---
Care endorsed to Denisse OLMSTEAD.
--- NOTE | 2018-05-22 08:05 | NUR ---
Opening Shift Note Assumed care of patient, resting in bed, eyes closed respirations even an unlabored. No S/S of distress/SOB or pain. Instructed on POC and to call for assist PRN, will continue to monitor for changes Q1hr and PRN.
[2018-05-22 09:00] VITALS: BP 144/76
[2018-05-22] MEDS: PANTOPRAZOLE 40 MG/10 ML VIAL IV SCH (09:53)
[2018-05-22] MEDS: ENOXAPARIN SOD 40 MG/0.4 ML SYRINGE SC SCH (09:53)
[2018-05-22] MEDS: cefTRIAXone 1GM/50ML D5W 50 ML IV SCH (09:53)
[2018-05-22] MEDS: METOPROLOL TARTRATE 50 MG TAB PO SCH ×2 (09:53→21:59)
[2018-05-22] MEDS: HYDROcodone-ACET 7.5/325MG TAB PO PRN ×3 (10:05→23:42)
--- NOTE | 2018-05-22 10:35 | NUR ---
PT Patient refused to be OOB during PT visit with c/o pain. AYSHA Salcedo was aware of pt's refusal during visit. Addendum: 05/22/18 at 1036 by SARAY DORAN PTT Amended: Links added.
--- NOTE | 2018-05-22 12:22 | NUR ---
PHYSICAL THERAPY Patient refused PT x2. Patient was premedicated for pain but continues to refuse.
[2018-05-22] MEDS ORDERED: PATIENTS OWN MEDICATION (EPOGEN 10,000 UNITS) SUBCUT ONE (12:30)
--- NOTE | 2018-05-22 12:32 | NUR ---
PT Patient refused to be OOB again during 2nd PT visit despite receiving pain medication. Addendum: 05/22/18 at 1233 by SARAY DORAN PTT Amended: Links added.
[2018-05-22 13:00] VITALS: BP 120/69
[2018-05-22 13:10] LABS: Basophils # (auto) 0.1 uL; Basophils % (auto) 1.1 % (0.0-2.0); Eosinophils # (auto) 0.2 uL; Eosinophils % (auto) 3.3 % (0.0-7.0); Hematocrit 29.1 % (36.0-46.0); Lymphocytes # (auto) 1.3 uL; Lymphocytes % (auto) 23.7 % (10.0-50.0); Mean Corpuscular Hemoglobin 31.2 pg (28.0-32.0); Mean Corpuscular Hgb Conc. 34.4 g/dL (32.0-36.0); Mean Corpuscular Volume 90.8 fL (80.0-100.0); Monocytes # (auto) 0.5 uL; Monocytes % (auto) 9.6 % (0.0-12.0); Neutrophils # (auto) 3.4 uL; Neutrophils % (auto) 62.3 % (37.0-80.0); Platelet Count (auto) 230 10^3/uL (140-450); White Blood Cell 5.5 10^3/uL (4.4-10.8)
[2018-05-22 13:48] LABS: Albumin 2.5 g/dL (3.4-5.0); BUN/Creatinine Ratio 11.9; Calcium 7.6 mg/dL (8.5-10.1); Potassium 3.1 mmol/L (3.5-5.1)
[2018-05-22 13:51] LABS: Bilirubin, Total 1.2 mg/dL (0.2-1.0); Total Protein 5.6 g/dL (6.4-8.2)
--- NOTE | 2018-05-22 14:43 | NUR ---
POTASSIUM Phone message left Dr Fowler to inform of potassium levels. Awaiting any further orders.
[2018-05-22] MEDS ORDERED: POTASSIUM CHL 20 Meq TABLET PO ONE (16:15)
[2018-05-22 17:00] VITALS: BP_SYST 122; BP_SYST 151; BP_DIAS 87
[2018-05-22] MEDS: ATORVASTATIN 20 MG TAB PO SCH (21:59)
[2018-05-22 22:00] VITALS: BP 154/89
[2018-05-23 05:00] VITALS: BP 150/90
[2018-05-23] MEDS: LACTULOSE 20Gm/30ML SOLN PO SCH ×4 (05:49→17:51)
[2018-05-23] MEDS: SODIUM CHLORIDE 0.9% 1,000 ML IV SCH (05:50)
[2018-05-23] MEDS: LEVOTHYROXINE SODIUM 100 MCG TAB PO SCH (07:05)
--- NOTE | 2018-05-23 07:50 | NUR ---
Opening Shift Note Assumed care of patient, awake and alert. No S/S of distress/SOB or pain. Instructed on POC and to call for assist PRN, will continue to monitor for changes Q1hr and PRN.
[2018-05-23] MEDS: PANTOPRAZOLE 40 MG/10 ML VIAL IV SCH (08:28)
[2018-05-23] MEDS: METOPROLOL TARTRATE 50 MG TAB PO SCH ×2 (08:29→22:25)
[2018-05-23] MEDS: ENOXAPARIN SOD 40 MG/0.4 ML SYRINGE SC SCH (08:29)
--- NOTE | 2018-05-23 08:47 | NUR ---
BLOOD PRESSURE Blood pressure elevated, patient removed from IV fluids, morning medications administered.
[2018-05-23 08:57] VITALS: BP 191/96
[2018-05-23 09:18] VITALS: BP 191/96
--- NOTE | 2018-05-23 10:25 | NUR ---
PHYSICAL THERAPY Patient working with PT.
--- NOTE | 2018-05-23 11:14 | NUR ---
TELEPHONE ORDERS Telephone order to d/C Iv fluids, Clonidine 0.2mg PO TID PRN SBP >150.
[2018-05-23] MEDS: cefTRIAXone 1GM/50ML D5W 50 ML IV SCH (11:17)
[2018-05-23 13:12] VITALS: BP 153/86
[2018-05-23] MEDS ORDERED: cloNIDine HCL 0.1 MG TAB PO PRN (14:00)
[2018-05-23] MEDS: ONDANSETRON HCL 4 MG/2 ML VIAL IV PRN (14:14)
--- NOTE | 2018-05-23 14:15 | NUR ---
XRAY Xray being performed at bedside.
[2018-05-23 17:00] VITALS: BP 114/62
[2018-05-23 21:56] VITALS: BP 144/79
[2018-05-23] MEDS: ATORVASTATIN 20 MG TAB PO SCH (22:24)
[2018-05-24 04:56] VITALS: BP 141/78
[2018-05-24] MEDS: LACTULOSE 20Gm/30ML SOLN PO SCH ×4 (06:00→18:00)
[2018-05-24] MEDS: LEVOTHYROXINE SODIUM 100 MCG TAB PO SCH (06:34)
--- NOTE | 2018-05-24 07:30 | NUR ---
Open Shift Note Received report on patient, awake and sitting up in bed. Patient shows no signs of distress at this time. Discussed POC with patient. Bed in lowest locked position, side rails up x2, and call light within reach. Will continue to monitor.
[2018-05-24 08:24] VITALS: BP 158/79
[2018-05-24] MEDS: PANTOPRAZOLE 40 MG/10 ML VIAL IV SCH (09:42)
[2018-05-24] MEDS: cefTRIAXone 1GM/50ML D5W 50 ML IV SCH (09:42)
[2018-05-24] MEDS: ENOXAPARIN SOD 40 MG/0.4 ML SYRINGE SC SCH (09:42)
[2018-05-24] MEDS: METOPROLOL TARTRATE 50 MG TAB PO SCH ×2 (09:43→22:20)
[2018-05-24 11:48] VITALS: BP 153/80
--- NOTE | 2018-05-24 11:55 | NUR ---
Spoke With Family Spoke with patient's daughter to interpret. Asked if patient would like to take medication Lactulose, but daughter stated the patient was nausous and vomited the last time she took it, therefore she no longer wants to take it. Verbalized understanding.
--- NOTE | 2018-05-24 13:00 | NUR ---
Dr Love at Bedside Asked Dr Love to look at patient's incision to determine what kind of dressing change he prefers. Per Dr Love's request, applied ABD pad and wrapped gauzes around patient's incision. Reapplied brace. Patient tolerated well.
--- NOTE | 2018-05-24 15:12 | NUR ---
Nutrition Follow-up Notes Wt.: 99.0 kg as of yesterday. Pt's on oxygen via nasal cannula, asleep, no immediate family member at bedside during round this morning. Pt's no signs of distress noted by RN earlier, currently on Consistent Standard Carb: 60 gms/meal, Cardiac: 2 gms Na, Low Chol, Low Fat diet with fair PO intake aeb 70% ave. consumed meals (x5) in last 2.5 days d/t pt refused, per nursing. Est. Needs: 1350 kcal to 1850 kcal (15-20 kcal/kgBW), 48 gms to 58 gms pro (1.0-1.2 gms/kgIBW: 48 kg). Will continue to monitor pertinent labs and reassess nutrient needs prn Labs: No new labs since 05/22/18 Gluc 127 H, Cl 111 H, K 3.1 L, Tot staci 1.2 H, Ca 7.6 L, Tpro 5.6 L, Alb 2.5 L Skin: Yoni scale 20 , low risk, pt's right leg incision dry and intact per bench assembly inspector. GI: Pt had 6x BM 05/20/18 per bench assembly inspector. PES: Altered nutrition related lab values r/t current/chronic medical condition aeb hyperglycemia, hypechloremia, elev. renal labs, TSH, hypocalcemia Obesity r/t food intake more than body requirement aeb 191% IBW, BMI 38.0 kg/m2 and increased body adiposity Will continue to monitor PO intake, skin status, pertinent labs and weight trend. F/u in 3 to 5 days. Rec.: 1.) Continue close supervision with meals 2.) Consider to continue monitoring pertinent labs; If Albumin level continues trending down, consider Prostat 1 pkt BID. 3.) Consider daily MVI with minerals and Asc acid 500 mgs BID prn. 4.) Refer to CDE/RD for further nutrition educ. and weight monitoring upon discharge. 5.) Continue current plan of care.
[2018-05-24 16:32] VITALS: BP 136/81
[2018-05-24 19:32] LABS: Basophils # (auto) 0 uL; Basophils % (auto) 0.7 % (0.0-2.0); Eosinophils # (auto) 0.2 uL; Eosinophils % (auto) 3.1 % (0.0-7.0); Hematocrit 31.1 % (36.0-46.0); Hemoglobin 10.4 g/dL (12.2-16.2); Lymphocytes # (auto) 1.6 uL; Lymphocytes % (auto) 24.2 % (10.0-50.0); Mean Corpuscular Hemoglobin 30.8 pg (28.0-32.0); Mean Corpuscular Hgb Conc. 33.5 g/dL (32.0-36.0); Mean Corpuscular Volume 91.9 fL (80.0-100.0); Monocytes # (auto) 0.5 uL; Monocytes % (auto) 7.2 % (0.0-12.0); Neutrophils # (auto) 4.3 uL; Neutrophils % (auto) 64.8 % (37.0-80.0); Platelet Count (auto) 235 10^3/uL (140-450); Red Blood Cells 3.39 10^6/uL (4.0-5.20); Red Cell Distribution Width 13.5 % (11.8-14.3); White Blood Cell 6.7 10^3/uL (4.4-10.8)
[2018-05-24 19:44] LABS: Albumin 2.9 g/dL (3.4-5.0); BUN/Creatinine Ratio 11.1; Calcium 7.9 mg/dL (8.5-10.1); Potassium 3.4 mmol/L (3.5-5.1)
[2018-05-24 19:46] LABS: Bilirubin, Total 1.1 mg/dL (0.2-1.0); Total Protein 6.2 g/dL (6.4-8.2)
[2018-05-24 21:57] VITALS: BP 141/80
[2018-05-24] MEDS: ATORVASTATIN 20 MG TAB PO SCH (22:20)
[2018-05-25 05:01] VITALS: BP 147/75
[2018-05-25] MEDS: LACTULOSE 20Gm/30ML SOLN PO SCH ×4 (06:00→18:00)
[2018-05-25] MEDS: LEVOTHYROXINE SODIUM 100 MCG TAB PO SCH (07:36)
[2018-05-25] MEDS: cefTRIAXone 1GM/50ML D5W 50 ML IV SCH (08:56)
[2018-05-25 09:15] VITALS: BP 164/96
[2018-05-25] MEDS: ENOXAPARIN SOD 40 MG/0.4 ML SYRINGE SC SCH (10:23)
[2018-05-25] MEDS: METOPROLOL TARTRATE 50 MG TAB PO SCH (10:23)
[2018-05-25] MEDS: PANTOPRAZOLE 40 MG/10 ML VIAL IV SCH (10:23)
--- NOTE | 2018-05-25 13:49 | NUR ---
ORDER AND CLINICALS FAXED TO [facility]. [phone]. PHONE NUMBER [phone] Addendum: 05/25/18 at 1350 by Jean Carlos Armenta RN CM REQUESTING WALKER BE DELIVERED TO BEDSIDE Addendum: 05/25/18 at 1538 by Jean Carlos Armenta RN CM ORDER FAXED TO [facility] REQUESTING BEDSIDE COMMODE ALSO TO BE DELIVERED TO BEDSIDE
[2018-05-25] MEDS: ONDANSETRON HCL 4 MG/2 ML VIAL IV PRN (14:10)
[2018-05-25 14:11] VITALS: BP 157/88
--- NOTE | 2018-05-25 16:10 | NUR ---
[facility] WILL DELIVER WALKER AND BEDSIDE TO THE PATIENT'S HOME TONIGHT AFTER DISCHARGE. [facility] PHONE NUMBER [phone]
[2018-05-25 18:05] VITALS: BP 157/88
--- NOTE | 2018-05-25 19:26 | NUR ---
Discharged Discharge instructions given as ordered. Encourage to follow up with PMD as instructed. All questions and concerns addressed. Patient verbalized understanding. IV removed with catheter intact, pressure dressing applied. Telemetry unit returned to ICU. Patient taken to vehicle via wheelchair with all personal belongings, accompanied by staff and family member. No distress noted at time of departure.
== END 2018-05-25 19:35 | disposition home health service (06) | DRG 493 ==
LOC: EDBD 13:31 → ER 13:31 → TELE 16:36 → TELE-WESTW 20:11
PROVIDERS: ADMIT Nurse Practitioner Acute Care; ATTEND Internal Medicine Cardiovascular Disease
PROC: 0JCN0ZZ Extirpation of Matter from Right Lower Leg Subcutaneous Tissue and Fascia, Open Approach (ICD-10-PCS; 2018-05-15)
PROC: 0QSG04Z Reposition Right Tibia with Internal Fixation Device, Open Approach (ICD-10-PCS; principal; 2018-05-15 16:12)
PROC: 30233N1 Transfusion of Nonautologous Red Blood Cells into Peripheral Vein, Percutaneous Approach (ICD-10-PCS; 2018-05-20)
DX: S82.101A Unspecified fracture of upper end of right tibia, initial encounter for closed fracture (principal); N39.0 Urinary tract infection, site not specified; E66.9 Obesity, unspecified; E03.9 Hypothyroidism, unspecified; E78.5 Hyperlipidemia, unspecified; I10 Essential (primary) hypertension; D64.9 Anemia, unspecified; E11.9 Type 2 diabetes mellitus without complications; F32.9 Major depressive disorder, single episode, unspecified; G89.29 Other chronic pain; M19.90 Unspecified osteoarthritis, unspecified site; I25.10 Atherosclerotic heart disease of native coronary artery without angina pectoris; M54.5 Low back pain; S82.831A Other fracture of upper and lower end of right fibula, initial encounter for closed fracture; M81.0 Age-related osteoporosis without current pathological fracture; E87.6 Hypokalemia; W01.0XXA Fall on same level from slipping, tripping and stumbling without subsequent striking against object, initial encounter; K21.9 Gastro-esophageal reflux disease without esophagitis; M21.00 Valgus deformity, not elsewhere classified, unspecified site; Z82.49 Family history of ischemic heart disease and other diseases of the circulatory system; Y93.89 Activity, other specified; Y92.89 Other specified places as the place of occurrence of the external cause; Z79.82 Long term (current) use of aspirin; Z79.899 Other long term (current) drug therapy; Z95.0 Presence of cardiac pacemaker; Z68.38 Body mass index [BMI] 38.0-38.9, adult
CPT/HCPCS: 29505; 36415; 51702; 71045; 73560; 73590; 73700; 76001; 80048; 80053; 80061; 81001; 83735; 84443; 85007; 85014; 85018; 85025; 85027; 85610; 85730; 86850; 86900; 86901; 86920; 87081; 87086; 93005; 93306; 94761; 96374; 97116; 97163; 97530; C9113; G0378; J0690; J0696; J1100; J2250; J2405; J2704

== ENCOUNTER → 2018-07-14 | Outpatient (CLI) | payer MEDICARE, MEDICAID ==
[~2018-07-14] MED LIST changes: -ASPI-407 PO; +ATOR20TA PO; -IBUP100S11 PO; +LEV100T PO; -LEVO100C; -LIS5T GT; +MELO1TAB56 PO; -MELO1TAB73; -MELO1TAB73 PO; -MET50T GT; +MET5XLT PO; -METO-169; +OLME20TA19 PO; -OME20GT; -OMEP20CA74 OR; +OMEP20TA PO; -SIMV-8 PO; -SIMV20TA90
[2018-07-14 12:27] LABS: BUN/Creatinine Ratio 21.5; Calcium 9.7 mg/dL (8.5-10.1); Potassium 3.3 mmol/L (3.5-5.1)
[2018-07-14 12:54] LABS: Basophils # (auto) 0.1 uL; Basophils % (auto) 1.1 % (0.0-2.0); Eosinophils # (auto) 0.2 uL; Eosinophils % (auto) 3.6 % (0.0-7.0); Hematocrit 40.9 % (36.0-46.0); Hemoglobin 13.9 g/dL (12.2-16.2); Lymphocytes # (auto) 1.8 uL; Lymphocytes % (auto) 36.2 % (10.0-50.0); Mean Corpuscular Hemoglobin 30.3 pg (28.0-32.0); Mean Corpuscular Hgb Conc. 34.1 g/dL (32.0-36.0); Mean Corpuscular Volume 88.9 fL (80.0-100.0); Monocytes # (auto) 0.5 uL; Neutrophils # (auto) 2.4 uL; Neutrophils % (auto) 48.1 % (37.0-80.0); Nucleated Red Blood Cells % 0.3 %; Platelet Count (auto) 242 10^3/uL (140-450); Red Cell Distribution Width 13.1 % (11.8-14.3); White Blood Cell 4.9 10^3/uL (4.4-10.8)
== END | disposition home or self-care (01) ==
LOC: LAB 10:29
PROVIDERS: ATTEND Internal Medicine Cardiovascular Disease
DX: D64.9 Anemia, unspecified (principal); I10 Essential (primary) hypertension
CPT/HCPCS: 36415; 80048; 85025

== ENCOUNTER 2018-09-15 04:49 | Emergency (ER) | payer MEDICARE, MEDICAID ==
[~2018-09-15] VITALS: Ht 165.1 cm; Wt 77.1 kg
[2018-09-15 05:33] LABS: Basophils # (auto) 0.1 uL; Basophils % (auto) 0.6 % (0.0-2.0); Eosinophils # (auto) 0.1 uL; Eosinophils % (auto) 1.3 % (0.0-7.0); Hematocrit 37.6 % (36.0-46.0); Hemoglobin 12.7 g/dL (12.2-16.2); Lymphocytes # (auto) 0.7 uL; Lymphocytes % (auto) 7.7 % (10.0-50.0); Mean Corpuscular Hemoglobin 29.8 pg (28.0-32.0); Mean Corpuscular Hgb Conc. 33.8 g/dL (32.0-36.0); Mean Corpuscular Volume 88.2 fL (80.0-100.0); Monocytes # (auto) 0.3 uL; Monocytes % (auto) 3.2 % (0.0-12.0); Neutrophils % (auto) 87.2 % (37.0-80.0); Platelet Count (auto) 221 10^3/uL (140-450); Red Blood Cells 4.26 10^6/uL (4.0-5.20); Red Cell Distribution Width 13.5 % (11.8-14.3); White Blood Cell 9.1 10^3/uL (4.4-10.8)
[2018-09-15] MEDS: ACETAMINOPHEN 325 MG TAB PO ONE (05:40)
[2018-09-15 05:57] LABS: Albumin 3.9 g/dL (3.4-5.0); BUN/Creatinine Ratio 20.2; Calcium 9.4 mg/dL (8.5-10.1); Potassium 3.9 mmol/L (3.5-5.1)
[2018-09-15 06:02] LABS: Total Protein 7.7 g/dL (6.4-8.2)
[2018-09-15 07:17] LABS: Urine Bacteria FEW /hpf (None Seen); Urine Blood Negative /uL (Negative); Urine Mucus FEW (None Seen); Urine WBC 76 /hpf (0 - 5); Urine WBC Clumps PRESENT /hpf (None Seen)
[2018-09-15] MEDS: SODIUM CHLORIDE 0.9% 500 ML IV ONE (07:34)
[2018-09-15] MEDS: SODIUM CHLORIDE 0.9% 1,000 ML IV ONE (08:03)
[2018-09-15 10:52] VITALS: BP 97/57
[2018-09-15] MEDS: cefTRIAXone 1GM/50ML D5W 50 ML IV ONE (11:09)
== END 2018-09-15 12:02 | disposition home or self-care (01) ==
LOC: EDBD 04:49 → ER 04:51
DX: R50.9 Fever, unspecified (principal); N10 Acute pyelonephritis; M79.604 Pain in right leg; E05.90 Thyrotoxicosis, unspecified without thyrotoxic crisis or storm; I10 Essential (primary) hypertension; E11.9 Type 2 diabetes mellitus without complications; K21.9 Gastro-esophageal reflux disease without esophagitis; E78.5 Hyperlipidemia, unspecified; Z95.0 Presence of cardiac pacemaker; Z86.39 Personal history of other endocrine, nutritional and metabolic disease
CPT/HCPCS: 36415; 71046; 73590; 80053; 81001; 83605; 83735; 84443; 84484; 85025; 87040; 87077; 87086; 87088; 87186; 93005; 94761; 96365; 99284; J0696; J7030; J7040

== ENCOUNTER → 2018-10-15 | Outpatient (CLI) | payer MEDICARE, MEDICAID ==
[2018-10-15 16:07] LABS: Urine Blood Negative /uL (Negative); Urine Specific Gravity 1.013 (1.001-1.035)
== END | disposition home or self-care (01) ==
LOC: LAB 11:44
PROVIDERS: ATTEND Internal Medicine Cardiovascular Disease
DX: N39.0 Urinary tract infection, site not specified (principal)
CPT/HCPCS: 81003

== ENCOUNTER → 2018-12-28 | Day surgery (SDC) | payer MEDICARE, MEDICAID ==
[2018-12-24 12:55] LABS: Basophils # (auto) 0.1 uL; Basophils % (auto) 0.9 % (0.0-2.0); Eosinophils # (auto) 0.1 uL; Eosinophils % (auto) 1.9 % (0.0-7.0); Hematocrit 40.3 % (36.0-46.0); Hemoglobin 14.2 g/dL (12.2-16.2); Lymphocytes # (auto) 2.1 uL; Mean Corpuscular Hemoglobin 31.7 pg (28.0-32.0); Mean Corpuscular Hgb Conc. 35.3 g/dL (32.0-36.0); Monocytes # (auto) 0.6 uL; Monocytes % (auto) 10.4 % (0.0-12.0); Neutrophils # (auto) 3.2 uL; Neutrophils % (auto) 51.8 % (37.0-80.0); Nucleated Red Blood Cells % 0.1 %; Platelet Count (auto) 256 10^3/uL (140-450); Red Blood Cells 4.48 10^6/uL (4.0-5.20); Red Cell Distribution Width 12.8 % (11.8-14.3); White Blood Cell 6.1 10^3/uL (4.4-10.8)
[2018-12-24 12:57] LABS: Urine Blood TRACE /uL (Negative); Urine Specific Gravity 1.011 (1.001-1.035)
[2018-12-24 13:03] LABS: INR 0.94 (0.9-1.15); Partial Thromboplastin Time 26.1 sec (23.64-32.05)
[2018-12-24 13:23] LABS: Albumin 4.4 g/dL (3.4-5.0); Calcium 9.6 mg/dL (8.5-10.1); Potassium 3.1 mmol/L (3.5-5.1)
[2018-12-24 13:26] LABS: Bilirubin, Total 0.9 mg/dL (0.2-1.0); Total Protein 8.1 g/dL (6.4-8.2)
[~2018-12-28] VITALS: Ht 157.5 cm; Wt 77.1 kg
[~2018-12-28] MED LIST changes: +ETOMIDATE (2MG/ML) 20ML VIAL IV ONE; +GLYCOPYRROLATE 0.2 MG/ML 1ML VIAL ONE; +HYDROmorphone HCL 2 MG/ML VL IV PRN; +LIDOCAINE 1% (LOCAL ANESTH.) PF 5ml SDV ONE; +LIDOCAINE 1% HCL (LOCAL ANESTH.) INJ 20ML MDV ONE; -MELO1TAB56 PO; -MET5XLT PO; +METO-6 PO; +METOCLOPRAMIDE HCL 5MG/ml INJ 2ml VIAL ONE; +MIDAZOLAM HCL 1MG/1ML-2 ML VIAL ONE; +MORPHINE SULF(PF) 0.5MG/ML 10ML VIAL ONE; +NALOXONE HCL 0.4 MG/ML VIAL IV PRN; +NEOSTIGMINE 1 MG/ML INJ (10mg/10ML VIAL) ONE; -OLME20TA19 PO; +OLME20TA53 PO; +ONDANSETRON HCL 4 MG/2 ML VIAL IV PRN; +POTASSIUM CHL 10 Meq TABLET PO ONE; +POTASSIUM CHL 20MEQ/100ML 100 ML IV ONE; +ROCURONIUM 10MG/ML 10ML VIAL IV ONE; +SUCCINYLCHOLINE CHLORIDE 20 MG/ML 10ML VIAL IV ONE; +ceFAZolin 1GM/50ML 50 ML IV ONE; +fentaNYL CITRATE 100 MCG/2 ML VL ONE; +hydrALAZINE HCL 20 MG/ML VL IV PRN
[2018-12-28 11:58] VITALS: BP 159/78
== END | disposition home or self-care (01) ==
LOC: SUR 07:23
PROVIDERS: ATTEND Orthopaedic Surgery
DX: S83.281A Other tear of lateral meniscus, current injury, right knee, initial encounter (principal); M65.861 Other synovitis and tenosynovitis, right lower leg; M94.261 Chondromalacia, right knee; M17.11 Unilateral primary osteoarthritis, right knee; I25.10 Atherosclerotic heart disease of native coronary artery without angina pectoris; G47.33 Obstructive sleep apnea (adult) (pediatric); I10 Essential (primary) hypertension; K21.9 Gastro-esophageal reflux disease without esophagitis; E07.9 Disorder of thyroid, unspecified; G89.29 Other chronic pain; Z88.8 Allergy status to other drugs, medicaments and biological substances; Z98.890 Other specified postprocedural states; X58.XXXA Exposure to other specified factors, initial encounter; Y93.89 Activity, other specified; Y92.89 Other specified places as the place of occurrence of the external cause; Y99.8 Other external cause status
CPT/HCPCS: 29876; 29881; 36415; 80053; 81003; 84132; 85025; 85610; 85730; J0330; J0690; J2001; J2250; J2270; J2765; J3010; J3480

== ENCOUNTER → 2019-01-28 | Outpatient (CLI) | payer MEDICARE, MEDICAID ==
[~2019-01-28] MED LIST changes: -ETOMIDATE (2MG/ML) 20ML VIAL IV ONE; -GLYCOPYRROLATE 0.2 MG/ML 1ML VIAL ONE; -HYDROmorphone HCL 2 MG/ML VL IV PRN; -LIDOCAINE 1% (LOCAL ANESTH.) PF 5ml SDV ONE; -LIDOCAINE 1% HCL (LOCAL ANESTH.) INJ 20ML MDV ONE; -METOCLOPRAMIDE HCL 5MG/ml INJ 2ml VIAL ONE; -MIDAZOLAM HCL 1MG/1ML-2 ML VIAL ONE; -MORPHINE SULF(PF) 0.5MG/ML 10ML VIAL ONE; -NALOXONE HCL 0.4 MG/ML VIAL IV PRN; -NEOSTIGMINE 1 MG/ML INJ (10mg/10ML VIAL) ONE; -ONDANSETRON HCL 4 MG/2 ML VIAL IV PRN; -POTASSIUM CHL 10 Meq TABLET PO ONE; -POTASSIUM CHL 20MEQ/100ML 100 ML IV ONE; +READI-CAT 2 (BARIUM SULF)(VANILLA SMOOTHIE) 450ML ONE; -ROCURONIUM 10MG/ML 10ML VIAL IV ONE; -SUCCINYLCHOLINE CHLORIDE 20 MG/ML 10ML VIAL IV ONE; -ceFAZolin 1GM/50ML 50 ML IV ONE; -fentaNYL CITRATE 100 MCG/2 ML VL ONE; -hydrALAZINE HCL 20 MG/ML VL IV PRN
== END | disposition home or self-care (01) ==
LOC: Rad HDHVI 08:37
PROVIDERS: ATTEND Internal Medicine Cardiovascular Disease
DX: K57.30 Diverticulosis of large intestine without perforation or abscess without bleeding (principal); N28.1 Cyst of kidney, acquired; I70.0 Atherosclerosis of aorta; I11.9 Hypertensive heart disease without heart failure
CPT/HCPCS: 74176

== ENCOUNTER → 2019-06-16 | Outpatient (CLI) | payer MEDICARE, MEDICAID ==
[~2019-06-16] VITALS: Ht 162.6 cm; Wt 77.1 kg
[~2019-06-16] MED LIST changes: +ADENOSINE 65 MG in GIVE UN-DILUTED 0 ML IV ONE; +ADENOSINE 90 MG/30 ML INJ IV ONE; -READI-CAT 2 (BARIUM SULF)(VANILLA SMOOTHIE) 450ML ONE
== END | disposition home or self-care (01) ==
LOC: Rad HDHVI 08:03
PROVIDERS: ATTEND Internal Medicine Cardiovascular Disease
DX: R06.02 Shortness of breath (principal); E78.00 Pure hypercholesterolemia, unspecified; I10 Essential (primary) hypertension; Z95.0 Presence of cardiac pacemaker; Z82.49 Family history of ischemic heart disease and other diseases of the circulatory system
CPT/HCPCS: 78452; 93005; 93306; 96374; 96375; A9500; J0153

== ENCOUNTER → 2019-07-08 | Outpatient (CLI) | payer MEDICARE, MEDICAID ==
[~2019-07-08] VITALS: Ht 157.5 cm; Wt 77.1 kg
[~2019-07-08] MED LIST changes: -ADENOSINE 65 MG in GIVE UN-DILUTED 0 ML IV ONE; -ADENOSINE 90 MG/30 ML INJ IV ONE; +CHLO50TA PO; +POTA1TAB61 PO
[2019-07-08 12:39] LABS: Basophils # (auto) 0.1 10 ^3/uL (0-0.2); Basophils % (auto) 1.1 % (0.0-2.0); Eosinophils # (auto) 0.1 10 ^3/uL (0-0.8); Eosinophils % (auto) 2.6 % (0.0-7.0); Hematocrit 39.5 % (36.0-46.0); Hemoglobin 13.3 g/dL (12.2-16.2); Lymphocytes # (auto) 1.9 10 ^3/uL (0.4-5.4); Lymphocytes % (auto) 34.4 % (10.0-50.0); Mean Corpuscular Hemoglobin 30.5 pg (28.0-32.0); Mean Corpuscular Hgb Conc. 33.6 g/dL (32.0-36.0); Mean Corpuscular Volume 90.7 fL (80.0-100.0); Monocytes # (auto) 0.5 10 ^3/uL (0-1.3); Monocytes % (auto) 9.3 % (0.0-12.0); Neutrophils # (auto) 2.9 10 ^3/uL (1.6-8.6); Neutrophils % (auto) 52.6 % (37.0-80.0); Platelet Count (auto) 215 10^3/uL (140-450); Red Blood Cells 4.35 10^6/uL (4.0-5.20); Red Cell Distribution Width 13.3 % (11.8-14.3); White Blood Cell 5.6 10^3/uL (4.4-10.8)
[2019-07-08 12:44] LABS: Urine Bacteria NONE SEEN /hpf (None Seen); Urine Blood Negative /uL (Negative); Urine Specific Gravity 1.008 (1.001-1.035); Urine WBC 3 /hpf (0 - 5)
[2019-07-08 12:59] LABS: INR 1.03 (0.9-1.15); Partial Thromboplastin Time 26.9 sec (23.64-32.05)
[2019-07-08 13:02] LABS: Albumin 4.3 g/dL (3.4-5.0); Calcium 9.6 mg/dL (8.5-10.1); Potassium 3.6 mmol/L (3.5-5.1)
[2019-07-08 13:06] LABS: BUN/Creatinine Ratio 15.8; Bilirubin, Total 0.8 mg/dL (0.2-1.0)
== END | disposition home or self-care (01) ==
LOC: SUR 11:36 → EDSTATUS 07-12 10:00
PROVIDERS: ATTEND Orthopaedic Surgery
DX: M17.11 Unilateral primary osteoarthritis, right knee (principal); I20.9 Angina pectoris, unspecified; F41.9 Anxiety disorder, unspecified; E66.9 Obesity, unspecified; Z98.890 Other specified postprocedural states; Z79.899 Other long term (current) drug therapy
CPT/HCPCS: 36415; 80053; 81001; 85025; 85610; 85730; 86850; 86900; 86901

== ENCOUNTER 2019-08-30 06:06 | Inpatient (IN) | payer MEDICARE, MEDICAID ==
[2019-08-26 11:24] LABS: Basophils # (auto) 0 10 ^3/uL (0-0.2); Basophils % (auto) 0.6 % (0.0-2.0); Eosinophils # (auto) 0.1 10 ^3/uL (0-0.8); Eosinophils % (auto) 2.4 % (0.0-7.0); Hematocrit 39.8 % (36.0-46.0); Hemoglobin 13.3 g/dL (12.2-16.2); Lymphocytes # (auto) 1.9 10 ^3/uL (0.4-5.4); Lymphocytes % (auto) 30.2 % (10.0-50.0); Mean Corpuscular Hemoglobin 30.2 pg (28.0-32.0); Mean Corpuscular Hgb Conc. 33.3 g/dL (32.0-36.0); Mean Corpuscular Volume 90.7 fL (80.0-100.0); Monocytes # (auto) 0.5 10 ^3/uL (0-1.3); Neutrophils # (auto) 3.6 10 ^3/uL (1.6-8.6); Neutrophils % (auto) 58.8 % (37.0-80.0); Nucleated Red Blood Cells % 0.1 %; Platelet Count (auto) 243 10^3/uL (140-450); Red Blood Cells 4.39 10^6/uL (4.0-5.20); Red Cell Distribution Width 13.8 % (11.8-14.3); White Blood Cell 6.1 10^3/uL (4.4-10.8)
[2019-08-26 11:32] LABS: Urine Bacteria NONE SEEN /hpf (None Seen); Urine Blood TRACE /uL (Negative); Urine Specific Gravity 1.016 (1.001-1.035); Urine WBC 2 /hpf (0 - 5)
[2019-08-26 11:41] LABS: INR 1.02 (0.9-1.15); Partial Thromboplastin Time 26.9 sec (23.64-32.05)
[2019-08-26 11:43] LABS: Albumin 4.3 g/dL (3.4-5.0); Calcium 9.3 mg/dL (8.5-10.1); Potassium 4.2 mmol/L (3.5-5.1)
[2019-08-26 11:46] LABS: BUN/Creatinine Ratio 29.6; Total Protein 8.1 g/dL (6.4-8.2)
[~2019-08-30] VITALS: Ht 152.4 cm; Wt 83.7 kg
[2019-08-30] MEDS ORDERED: ceFAZolin 1GM/50ML 50 ML IV ONE (06:36)
[2019-08-30] MEDS ORDERED: TETRACAINE 1% INJ 2 ML VIAL IJ ONE (06:53)
[2019-08-30] MEDS ORDERED: ROPIVACAINE 0.5% (5MG/ML) 20ML AMPULE IJ ONE (07:38)
[2019-08-30] MEDS ORDERED: FAMOTIDINE (10MG/ML) 2ML VL IV ONE (07:39)
[2019-08-30] MEDS ORDERED: ceFAZolin 1GM/50ML 50 ML IV SCH (11:45)
[2019-08-30] MEDS ORDERED: MORPHINE SULFATE 4 MG/ML SYR/VIAL IV PRN (11:45)
[2019-08-30] MEDS ORDERED: ONDANSETRON HCL 4 MG/2 ML VIAL IV PRN ×2 (11:45→12:45)
[2019-08-30] MEDS ORDERED: HYDROmorphone HCL 2 MG/ML VL ONE (11:57)
[2019-08-30] MEDS: HYDROmorphone HCL 2 MG/ML VL IV PRN ×4 (11:59→13:00)
[2019-08-30] MEDS ORDERED: LABETALOL HCL 5 MG/ML 4ML SYRINGE IV PRN (12:45)
[2019-08-30] MEDS ORDERED: MIDAZOLAM HCL 1MG/1ML-2 ML VIAL IV PRN (12:45)
[2019-08-30] MEDS ORDERED: ePHEDrine SULFATE 50 MG/ML AMP IV PRN (12:45)
[2019-08-30] MEDS ORDERED: MORPHINE SULF INJ 2 MG/ML SYRINGE 1ML IV PRN (12:45)
[2019-08-30] MEDS ORDERED: ACETAMINOPHEN IV 100 ML IV ONE (12:59)
[2019-08-30] MEDS ORDERED: ACETAMINOPHEN IV 1000 MG/100ML (10MG/ML) IV ONE (13:00)
[2019-08-30] MEDS: SODIUM CHLOR 0.9% PF (SALINE LOCK) 10ML VIAL/SYR IV SCH ×2 (14:00→22:05)
[2019-08-30] MEDS: ceFAZolin 1GM/50ML 50 ML IV SCH ×2 (14:48→22:05)
[2019-08-30 16:41] VITALS: BP_DIAS 98
[2019-08-30 19:53] LABS: Hematocrit 34.2 % (36.0-46.0); Hemoglobin 11.4 g/dL (12.2-16.2)
[2019-08-30 22:00] VITALS: BP 91/44
[2019-08-30] MEDS: LACTATED RINGER'S 1,000 ML IV SCH (22:04)
[2019-08-30] MEDS: ATORVASTATIN 20 MG TAB PO SCH (22:05)
[2019-08-30] MEDS: DOCUSATE SOD 100 MG CAP PO SCH (22:05)
[2019-08-30] MEDS: ACETAMINOPHEN 325 MG TAB PO PRN (23:04)
[2019-08-30] MEDS: ONDANSETRON HCL 4 MG/2 ML VIAL IV PRN (23:21)
[2019-08-31] VITALS (7 sets, daily range): BP systolic 82–114; BP diastolic 43–57
[2019-08-31] MEDS: HYDROmorphone HCL 2 MG/ML VL IV PRN ×3 (00:16→18:25)
[2019-08-31] MEDS: HYDROcodone-ACET 10/325MG TAB PO PRN ×3 (00:48→16:44)
[2019-08-31] MEDS: ceFAZolin 1GM/50ML 50 ML IV SCH (06:10)
[2019-08-31] MEDS: SODIUM CHLOR 0.9% PF (SALINE LOCK) 10ML VIAL/SYR IV SCH ×3 (06:10→21:16)
[2019-08-31] MEDS: LEVOTHYROXINE SODIUM 25 MCG TAB PO SCH (06:10)
[2019-08-31] MEDS: KETOROLAC TROMETH 30 MG/ML 1ML VIAL IV PRN ×3 (06:23→21:25)
[2019-08-31] MEDS: LACTATED RINGER'S 1,000 ML IV SCH (07:37)
[2019-08-31 09:04] LABS: Basophils # (auto) 0 10 ^3/uL (0-0.2); Basophils % (auto) 0.1 % (0.0-2.0); Eosinophils # (auto) 0 10 ^3/uL (0-0.8); Hematocrit 29.5 % (36.0-46.0); Hemoglobin 9.9 g/dL (12.2-16.2); Lymphocytes # (auto) 1.9 10 ^3/uL (0.4-5.4); Lymphocytes % (auto) 16.3 % (10.0-50.0); Mean Corpuscular Hemoglobin 30.4 pg (28.0-32.0); Mean Corpuscular Hgb Conc. 33.4 g/dL (32.0-36.0); Mean Corpuscular Volume 90.9 fL (80.0-100.0); Monocytes # (auto) 1.1 10 ^3/uL (0-1.3); Monocytes % (auto) 9.6 % (0.0-12.0); Neutrophils # (auto) 8.6 10 ^3/uL (1.6-8.6); Platelet Count (auto) 207 10^3/uL (140-450); Red Blood Cells 3.24 10^6/uL (4.0-5.20); Red Cell Distribution Width 13.5 % (11.8-14.3); White Blood Cell 11.6 10^3/uL (4.4-10.8)
[2019-08-31] MEDS: DOCUSATE SOD 100 MG CAP PO SCH ×2 (09:14→21:25)
[2019-08-31] MEDS: METOPROLOL SUCCINATE XL 50 MG TAB PO SCH (09:15)
[2019-08-31] MEDS ORDERED: ENOXAPARIN SOD 40 MG/0.4 ML SYRINGE SC SCH (10:00)
[2019-08-31] MEDS ORDERED: ALPRAZolam 0.25 MG TAB PO PRN (12:00)
[2019-08-31] MEDS: ATORVASTATIN 20 MG TAB PO SCH (21:25)
[2019-09-01 05:00] VITALS: BP_SYST 124; BP_SYST 67; BP_DIAS 67
[2019-09-01] MEDS: LACTATED RINGER'S 1,000 ML IV SCH ×2 (05:11→23:37)
[2019-09-01] MEDS: SODIUM CHLOR 0.9% PF (SALINE LOCK) 10ML VIAL/SYR IV SCH ×3 (05:12→22:51)
[2019-09-01] MEDS: LEVOTHYROXINE SODIUM 25 MCG TAB PO SCH (05:46)
[2019-09-01] MEDS: KETOROLAC TROMETH 30 MG/ML 1ML VIAL IV PRN ×2 (05:47→17:45)
[2019-09-01 05:50] LABS: Hematocrit 25.5 % (36.0-46.0); Hemoglobin 8.7 g/dL (12.2-16.2)
[2019-09-01 09:00] VITALS: BP 95/41
[2019-09-01] MEDS: DOCUSATE SOD 100 MG CAP PO SCH ×2 (09:24→22:49)
[2019-09-01] MEDS: METOPROLOL SUCCINATE XL 50 MG TAB PO SCH (09:24)
[2019-09-01] MEDS: HYDROmorphone HCL 2 MG/ML VL IV PRN ×2 (09:24→21:02)
[2019-09-01 13:00] VITALS: BP 117/50
[2019-09-01] MEDS: HYDROcodone-ACET 10/325MG TAB PO PRN (13:42)
[2019-09-01 17:00] VITALS: BP 98/42
[2019-09-01] MEDS ORDERED: MAGNESIUM CITRATE SOLUTION 300 ML BTL PO ONE (18:00)
[2019-09-01] MEDS: ONDANSETRON HCL 4 MG/2 ML VIAL IV PRN (18:03)
[2019-09-01 20:00] VITALS: BP 147/80
[2019-09-01 22:00] VITALS: BP 125/59
[2019-09-01] MEDS: ATORVASTATIN 20 MG TAB PO SCH (22:49)
[2019-09-02] MEDS: KETOROLAC TROMETH 30 MG/ML 1ML VIAL IV PRN ×2 (02:13→21:49)
[2019-09-02 05:00] VITALS: BP 103/44
[2019-09-02] MEDS: LEVOTHYROXINE SODIUM 25 MCG TAB PO SCH (06:00)
[2019-09-02] MEDS: SODIUM CHLOR 0.9% PF (SALINE LOCK) 10ML VIAL/SYR IV SCH ×3 (06:03→22:15)
[2019-09-02 07:50] LABS: Hematocrit 25.3 % (36.0-46.0); Hemoglobin 8.3 g/dL (12.2-16.2)
[2019-09-02 08:58] VITALS: BP 139/56
[2019-09-02] MEDS: METOPROLOL SUCCINATE XL 50 MG TAB PO SCH (10:20)
[2019-09-02] MEDS: DOCUSATE SOD 100 MG CAP PO SCH ×2 (10:20→21:48)
[2019-09-02] MEDS: HYDROmorphone HCL 2 MG/ML VL IV PRN (10:21)
[2019-09-02] MEDS: ONDANSETRON HCL 4 MG/2 ML VIAL IV PRN (11:22)
[2019-09-02 12:38] VITALS: BP 160/93
[2019-09-02 15:47] LABS: Basophils # (auto) 0 10 ^3/uL (0-0.2); Basophils % (auto) 0.5 % (0.0-2.0); Eosinophils # (auto) 0.2 10 ^3/uL (0-0.8); Eosinophils % (auto) 3.4 % (0.0-7.0); Hematocrit 27.6 % (36.0-46.0); Hemoglobin 9.2 g/dL (12.2-16.2); Lymphocytes % (auto) 27.8 % (10.0-50.0); Mean Corpuscular Hemoglobin 30.6 pg (28.0-32.0); Mean Corpuscular Hgb Conc. 33.5 g/dL (32.0-36.0); Mean Corpuscular Volume 91.4 fL (80.0-100.0); Monocytes # (auto) 0.6 10 ^3/uL (0-1.3); Monocytes % (auto) 9.1 % (0.0-12.0); Neutrophils # (auto) 4.2 10 ^3/uL (1.6-8.6); Neutrophils % (auto) 59.2 % (37.0-80.0); Platelet Count (auto) 177 10^3/uL (140-450); Red Blood Cells 3.02 10^6/uL (4.0-5.20); Red Cell Distribution Width 13.5 % (11.8-14.3); White Blood Cell 7.1 10^3/uL (4.4-10.8)
[2019-09-02 15:59] LABS: BUN/Creatinine Ratio 22.7; Calcium 8.6 mg/dL (8.5-10.1); Potassium 4.1 mmol/L (3.5-5.1)
[2019-09-02 16:49] VITALS: BP 115/54
[2019-09-02] MEDS: LACTATED RINGER'S 1,000 ML IV SCH (19:37)
[2019-09-02 20:00] VITALS: BP 128/59
[2019-09-02] MEDS: ATORVASTATIN 20 MG TAB PO SCH (21:48)
[2019-09-02 22:00] VITALS: BP 128/59
[2019-09-03] VITALS (10 sets, daily range): BP systolic 105–146; BP diastolic 55–85
[2019-09-03] MEDS: KETOROLAC TROMETH 30 MG/ML 1ML VIAL IV PRN ×2 (06:00→18:10)
[2019-09-03] MEDS: LEVOTHYROXINE SODIUM 25 MCG TAB PO SCH (06:00)
[2019-09-03] MEDS: SODIUM CHLOR 0.9% PF (SALINE LOCK) 10ML VIAL/SYR IV SCH ×3 (06:38→21:52)
[2019-09-03 07:12] LABS: Hemoglobin 7.9 g/dL (12.2-16.2)
[2019-09-03 07:14] LABS: Hematocrit 22.9 % (36.0-46.0)
[2019-09-03] MEDS: METOPROLOL SUCCINATE XL 50 MG TAB PO SCH (10:00)
[2019-09-03] MEDS: DOCUSATE SOD 100 MG CAP PO SCH ×2 (10:00→21:52)
[2019-09-03] MEDS: HYDROcodone-ACET 10/325MG TAB PO PRN ×2 (11:14→21:52)
[2019-09-03] MEDS ORDERED: EPOETIN ALFA 10,000 UNIT/1 ML VIAL SC ONE (13:00)
[2019-09-03] MEDS: LACTATED RINGER'S 1,000 ML IV SCH (15:37)
[2019-09-03] MEDS: FERROUS SULFATE 325 MG TAB PO SCH (18:10)
[2019-09-03] MEDS: ATORVASTATIN 20 MG TAB PO SCH (21:52)
[2019-09-04 05:51] VITALS: BP 126/62
[2019-09-04] MEDS: SODIUM CHLOR 0.9% PF (SALINE LOCK) 10ML VIAL/SYR IV SCH ×3 (05:59→22:00)
[2019-09-04] MEDS: LEVOTHYROXINE SODIUM 25 MCG TAB PO SCH (06:42)
[2019-09-04] MEDS: KETOROLAC TROMETH 30 MG/ML 1ML VIAL IV PRN ×2 (06:43→15:00)
[2019-09-04] MEDS: FERROUS SULFATE 325 MG TAB PO SCH ×2 (08:04→17:58)
[2019-09-04 09:00] VITALS: BP 167/85
[2019-09-04] MEDS: METOPROLOL SUCCINATE XL 50 MG TAB PO SCH (09:09)
[2019-09-04] MEDS: DOCUSATE SOD 100 MG CAP PO SCH ×2 (09:09→22:00)
[2019-09-04 10:59] LABS: Basophils # (auto) 0.1 10 ^3/uL (0-0.2); Eosinophils # (auto) 0.4 10 ^3/uL (0-0.8); Eosinophils % (auto) 7.6 % (0.0-7.0); Hematocrit 31.6 % (36.0-46.0); Hemoglobin 10.8 g/dL (12.2-16.2); Lymphocytes # (auto) 1.5 10 ^3/uL (0.4-5.4); Lymphocytes % (auto) 26.4 % (10.0-50.0); Mean Corpuscular Hemoglobin 31.1 pg (28.0-32.0); Mean Corpuscular Hgb Conc. 34.1 g/dL (32.0-36.0); Mean Corpuscular Volume 91.1 fL (80.0-100.0); Monocytes # (auto) 0.5 10 ^3/uL (0-1.3); Monocytes % (auto) 8.7 % (0.0-12.0); Neutrophils # (auto) 3.2 10 ^3/uL (1.6-8.6); Neutrophils % (auto) 56.3 % (37.0-80.0); Platelet Count (auto) 207 10^3/uL (140-450); Red Blood Cells 3.47 10^6/uL (4.0-5.20); Red Cell Distribution Width 13.6 % (11.8-14.3); White Blood Cell 5.7 10^3/uL (4.4-10.8)
[2019-09-04] MEDS: LACTATED RINGER'S 1,000 ML IV SCH (11:37)
[2019-09-04 13:00] VITALS: BP 155/71
[2019-09-04 17:00] VITALS: BP 161/89
[2019-09-04 21:59] VITALS: BP 134/69
[2019-09-04] MEDS: ATORVASTATIN 20 MG TAB PO SCH (22:00)
[2019-09-05 05:00] VITALS: BP 148/74
[2019-09-05] MEDS: HYDROmorphone HCL 2 MG/ML VL IV PRN (05:48)
[2019-09-05] MEDS: SODIUM CHLOR 0.9% PF (SALINE LOCK) 10ML VIAL/SYR IV SCH ×2 (05:48→14:00)
[2019-09-05] MEDS: LEVOTHYROXINE SODIUM 25 MCG TAB PO SCH (06:46)
[2019-09-05 08:00] VITALS: BP 94/44
[2019-09-05] MEDS: LACTATED RINGER'S 1,000 ML IV SCH (08:41)
[2019-09-05] MEDS: FERROUS SULFATE 325 MG TAB PO SCH (08:41)
[2019-09-05 09:00] VITALS: BP 94/44
[2019-09-05] MEDS: METOPROLOL SUCCINATE XL 50 MG TAB PO SCH (09:25)
[2019-09-05] MEDS: DOCUSATE SOD 100 MG CAP PO SCH (09:29)
[2019-09-05] MEDS: HYDROcodone-ACET 10/325MG TAB PO PRN (11:16)
[2019-09-05 13:00] VITALS: BP 157/75
[2019-09-05 13:43] VITALS: BP 157/75
[2019-09-05] MEDS: ACETAMINOPHEN 325 MG TAB PO PRN (13:53)
== END 2019-09-05 16:00 | disposition home or self-care (01) | DRG 470 ==
LOC: SUR 06:06 → TELE-WESTW 14:18
PROVIDERS: ADMIT Orthopaedic Surgery; ATTEND Internal Medicine Cardiovascular Disease
PROC: 3E0T3BZ Introduction of Anesthetic Agent into Peripheral Nerves and Plexi, Percutaneous Approach (ICD-10-PCS; 2019-08-30)
PROC: 0YP90YZ Removal of Other Device from Right Lower Extremity, Open Approach (ICD-10-PCS; 2019-08-30)
PROC: 0SRC0J9 Replacement of Right Knee Joint with Synthetic Substitute, Cemented, Open Approach (ICD-10-PCS; principal; 2019-08-30 07:40)
DX: M17.11 Unilateral primary osteoarthritis, right knee (principal); M21.061 Valgus deformity, not elsewhere classified, right knee; I10 Essential (primary) hypertension; D64.9 Anemia, unspecified; E78.5 Hyperlipidemia, unspecified; E03.9 Hypothyroidism, unspecified
CPT/HCPCS: 36415; 73562; 80048; 80053; 81001; 85014; 85018; 85025; 85610; 85730; 86850; 86900; 86901; 86920; 97110; 97116; 97163; 97530; G0378; J0131; J0690; J0885; J1885; J2405; J3490

== ENCOUNTER → 2019-09-12 | Outpatient (CLI) | payer MEDICARE, MEDICAID ==
[2019-09-12 15:50] LABS: Basophils # (auto) 0 10 ^3/uL (0-0.2); Basophils % (auto) 0.7 % (0.0-2.0); Eosinophils # (auto) 0.1 10 ^3/uL (0-0.8); Eosinophils % (auto) 1.9 % (0.0-7.0); Hemoglobin 11.4 g/dL (12.2-16.2); Lymphocytes # (auto) 1.6 10 ^3/uL (0.4-5.4); Mean Corpuscular Hemoglobin 30.6 pg (28.0-32.0); Mean Corpuscular Hgb Conc. 32.7 g/dL (32.0-36.0); Mean Corpuscular Volume 93.8 fL (80.0-100.0); Monocytes # (auto) 0.6 10 ^3/uL (0-1.3); Monocytes % (auto) 8.7 % (0.0-12.0); Neutrophils # (auto) 4.1 10 ^3/uL (1.6-8.6); Neutrophils % (auto) 63.7 % (37.0-80.0); Nucleated Red Blood Cells % 0.1 %; Platelet Count (auto) 331 10^3/uL (140-450); Red Blood Cells 3.73 10^6/uL (4.0-5.20); Red Cell Distribution Width 14.7 % (11.8-14.3); White Blood Cell 6.4 10^3/uL (4.4-10.8)
[2019-09-12 15:52] LABS: BUN/Creatinine Ratio 17.4; Calcium 9.2 mg/dL (8.5-10.1); Potassium 4.6 mmol/L (3.5-5.1)
== END | disposition home or self-care (01) ==
LOC: LAB 11:43
PROVIDERS: ATTEND Internal Medicine Cardiovascular Disease
DX: D64.9 Anemia, unspecified (principal); I10 Essential (primary) hypertension
CPT/HCPCS: 36415; 80048; 85025

== ENCOUNTER → 2020-04-04 | Outpatient (CLI) | payer MEDICARE, MEDICAID ==
[2020-04-04 15:53] LABS: Basophils # (auto) 0 10 ^3/uL (0-0.2); Basophils % (auto) 0.7 % (0.0-2.0); Eosinophils # (auto) 0.2 10 ^3/uL (0-0.8); Eosinophils % (auto) 4.2 % (0.0-7.0); Hematocrit 40.6 % (36.0-46.0); Hemoglobin 13.4 g/dL (12.2-16.2); Lymphocytes # (auto) 1.5 10 ^3/uL (0.4-5.4); Lymphocytes % (auto) 31.8 % (10.0-50.0); Mean Corpuscular Hemoglobin 29.7 pg (28.0-32.0); Monocytes # (auto) 0.4 10 ^3/uL (0-1.3); Monocytes % (auto) 8.6 % (0.0-12.0); Neutrophils # (auto) 2.6 10 ^3/uL (1.6-8.6); Neutrophils % (auto) 54.7 % (37.0-80.0); Nucleated Red Blood Cells % 0.3 %; Platelet Count (auto) 266 10^3/uL (140-450); Red Blood Cells 4.52 10^6/uL (4.0-5.20); Red Cell Distribution Width 13.5 % (11.8-14.3); White Blood Cell 4.7 10^3/uL (4.4-10.8)
[2020-04-04 16:04] LABS: Urine Blood Negative /uL (Negative); Urine Specific Gravity 1.015 (1.001-1.035)
[2020-04-04 16:07] LABS: Albumin 4.4 g/dL (3.4-5.0); Calcium 9.5 mg/dL (8.5-10.1); Potassium 4.6 mmol/L (3.5-5.1)
[2020-04-04 16:11] LABS: BUN/Creatinine Ratio 22.2; Bilirubin, Total 0.8 mg/dL (0.2-1.0); Total Protein 8.1 g/dL (6.4-8.2)
[2020-04-04 16:15] LABS: Free T4 (Free Thyroxine) 1.15 ng/dL (0.89-1.76)
== END | disposition home or self-care (01) ==
LOC: LAB 11:32
PROVIDERS: ATTEND Internal Medicine Cardiovascular Disease
DX: D51.3 Other dietary vitamin B12 deficiency anemia (principal); I10 Essential (primary) hypertension; E11.9 Type 2 diabetes mellitus without complications; E55.9 Vitamin D deficiency, unspecified; D64.9 Anemia, unspecified; R00.2 Palpitations; R53.1 Weakness; R30.0 Dysuria
CPT/HCPCS: 36415; 80053; 80061; 81003; 82306; 82607; 83036; 84439; 84443; 85025; 87086

== ENCOUNTER → 2020-06-13 | Outpatient (CLI) | payer MEDICARE, MEDICAID | END | disposition home or self-care (01) | LOC: Rad HDHVI 10:10 | PROVIDERS: ATTEND Internal Medicine Cardiovascular Disease | DX: R42 Dizziness and giddiness (principal); E03.9 Hypothyroidism, unspecified | CPT/HCPCS: 93880 ==

== ENCOUNTER → 2020-09-13 | Outpatient (CLI) | payer MEDICARE, MEDICAID ==
[~2020-09-13] VITALS: Ht 160 cm; Wt 78.9 kg
[~2020-09-13] MED LIST changes: +ADENOSINE 66 MG in GIVE UN-DILUTED 0 ML IV ONE; +ADENOSINE 90 MG/30 ML INJ IV ONE
[2020-09-13 11:40] LABS: Basophils # (auto) 0 10 ^3/uL (0-0.2); Basophils % (auto) 0.9 % (0.0-2.0); Eosinophils # (auto) 0.2 10 ^3/uL (0-0.8); Eosinophils % (auto) 3.9 % (0.0-7.0); Hematocrit 38.2 % (36.0-46.0); Hemoglobin 13.3 g/dL (12.2-16.2); Lymphocytes # (auto) 1.6 10 ^3/uL (0.4-5.4); Lymphocytes % (auto) 35.5 % (10.0-50.0); Mean Corpuscular Hemoglobin 31.2 pg (28.0-32.0); Mean Corpuscular Hgb Conc. 34.9 g/dL (32.0-36.0); Mean Corpuscular Volume 89.3 fL (80.0-100.0); Monocytes # (auto) 0.4 10 ^3/uL (0-1.3); Monocytes % (auto) 8.7 % (0.0-12.0); Neutrophils # (auto) 2.3 10 ^3/uL (1.6-8.6); Nucleated Red Blood Cells % 0.1 %; Platelet Count (auto) 232 10^3/uL (140-450); Red Blood Cells 4.27 10^6/uL (4.0-5.20); Red Cell Distribution Width 12.8 % (11.8-14.3); White Blood Cell 4.5 10^3/uL (4.4-10.8)
[2020-09-13 11:49] LABS: Albumin 4.1 g/dL (3.4-5.0); Calcium 9.5 mg/dL (8.5-10.1); Potassium 4.9 mmol/L (3.5-5.1)
[2020-09-13 11:53] LABS: Urine Blood Negative /uL (Negative); Urine Specific Gravity 1.015 (1.001-1.035)
[2020-09-13 11:54] LABS: BUN/Creatinine Ratio 23.4; Bilirubin, Total 0.9 mg/dL (0.2-1.0); Total Protein 7.8 g/dL (6.4-8.2)
[2020-09-13 12:02] LABS: Free T4 (Free Thyroxine) 1.5 ng/dL (0.89-1.76)
== END | disposition home or self-care (01) ==
LOC: Rad HDHVI 09:27
PROVIDERS: ATTEND Internal Medicine Cardiovascular Disease
DX: I10 Essential (primary) hypertension (principal); D51.3 Other dietary vitamin B12 deficiency anemia; E78.5 Hyperlipidemia, unspecified; G45.9 Transient cerebral ischemic attack, unspecified; R07.89 Other chest pain; D64.9 Anemia, unspecified; E11.9 Type 2 diabetes mellitus without complications; E55.9 Vitamin D deficiency, unspecified; R00.2 Palpitations; R53.1 Weakness; R30.0 Dysuria; Z95.0 Presence of cardiac pacemaker; Z82.49 Family history of ischemic heart disease and other diseases of the circulatory system
CPT/HCPCS: 36415; 78452; 80053; 80061; 81003; 82306; 82607; 83036; 84439; 84443; 85025; 93005; 96374; 96375; A9500; J0153